=== PATIENT | female | born 1940 | race Caucasian/White ===

== ENCOUNTER 2017-08-10 13:29 | Outpatient (CLI) | payer MEDICARE, BC ==
[~2017-08-10 13:29] MED LIST: Iopamidol 370 76% 100 ML VIAL ONE
--- NOTE | 2017-08-10 15:50 | CT ---
CT OF ABDOMEN PERFORMED WITH AND WITHOUT CONTRAST ENHANCEMENT: Date: 08/10/17 COMPARISON: 10/08/13 and 01/14/16 examinations. This study was done per the pancreatic mass protocol. HISTORY: History of pancreatic pseudocyst. Abdominal pain. Follow-up of pseudocyst. FINDINGS: The lung bases are clear of any focal infiltrative process. Spleen is enlarged. The liver shows no focal abnormalities. Fairly pronounced intra and extrahepatic ductal dilatation. There are chronic pancreatitis changes with a dilated serpiginous appearance to th e pancreatic duct. Both the pancreatic duct and common bile duct abruptly taper in the pancreatic hea d region. Pancreatic head and uncinate process region are full, but this appearance is fairly similar to the previous examination. I cannot define a definite discrete mass. The degree of ductal dilatati on is minimally increased. The gallbladder is not distended. Right and left adrenal glands, and right and left kidneys are normal in appearance. There are small p eriaortic and aortocaval lymph nodes, and some moderate mesenteric adenopathy. There are also extensi ve varices noted with varices extending to a paraesophageal location. The transverse and descending colon are fairly normal in appearance. There is fairly pronounced wall thickening to the right colon to the level of the hepatic flexure. IMPRESSION: 1. Findings are suspicious for a right-sided colitis. 2. Mild splenomegaly with evidence of fairly extensive varices. 3. The intra and extrahepatic biliary ductal dilatation has increased slightly as compared to the pr ior examination. There is also a chronically dilated pancreatic duct. Both the pancreatic duct and co mmon bile duct taper abruptly to end at the level of the pancreatic head and there is fullness in the pancreatic head and uncinate process region. It is difficult to exclude a mass in this area, but the appearance is actually fairly similar to the prior study and may represent a chronic stricture given the fairly minor change as compared to the 2016 study. 4. There is very mild ascites seen with some minimal ascites adjacent to the right colon and adjacen t to the liver and spleen. 5. Moderate mesenteric adenopathy and mildly prominent periaortic and aortocaval nodes, which may al l be reactive. Findings discussed with Dr. Guillen. CODE CR. POS: [facility]
== END 2017-08-10 13:30 | disposition home or self-care (01) ==
LOC: SCSCT 13:29
PROVIDERS: ATTEND Internal Medicine Gastroenterology
DX: R59.0 Localized enlarged lymph nodes (principal); R16.1 Splenomegaly, not elsewhere classified; R18.8 Other ascites; K86.2 Cyst of pancreas; R19.7 Diarrhea, unspecified; E11.9 Type 2 diabetes mellitus without complications; Z63.79 Other stressful life events affecting family and household
CPT/HCPCS: 74178; 82565

== ENCOUNTER 2017-08-14 07:40 | Day surgery (SDC) | payer MEDICARE, BC ==
[2017-08-11 15:32] VITALS: BMI 26.6
[2017-08-14] MEDS ORDERED: Sodium Chloride 0.9% 100 ML ONE (10:02)
[2017-08-14] MEDS ORDERED: cefTRIAXone\\ROCEPHIN 1 GM VIAL ONE (10:02)
[2017-08-14] MEDS ORDERED: Fentanyl 100 MCG/2 ML VIAL ONE (10:12)
[2017-08-14] MEDS ORDERED: Iothalamate Meglumine 60% 50 ML VIAL FS ONE (10:13)
[2017-08-14] MEDS ORDERED: Indomethacin 50 MG SUPP ONE ×2 (10:13→10:33)
[2017-08-14] MEDS ORDERED: Insulin Regular 300 UNITS/3 ML VIAL ONE (10:26)
[2017-08-14] MEDS ORDERED: Glycopyrrolate 0.2 MG/ML 5 ML SYRINGE ONE (12:14)
[2017-08-14] MEDS ORDERED: Lidocaine 1% PF 5 ML VIAL ONE (12:14)
[2017-08-14] MEDS ORDERED: PROPOFOL 200 MG/20 ML VIAL ONE (12:14)
[2017-08-14] MEDS ORDERED: Succinylcholine Chloride 20 MG/ML 10 ml SYRINGE FS ONE (12:14)
[2017-08-14] MEDS ORDERED: Dexamethasone 20 MG/5 ML VIAL ONE (12:14)
[2017-08-14] MEDS ORDERED: Ondansetron HCl/PF 4 MG/2 ML Vial ONE (12:16)
[2017-08-14] MEDS ORDERED: Promethazine HCl 25 MG/ML VIAL ONE (12:16)
--- NOTE | 2017-08-14 12:52 | OP ---
DATE OF SERVICE: 08/14/2017 PROCEDURE: Attempted endoscopic retrograde cholangiopancreatography. SURGEON: Angelo Ramirez M.D. ANESTHESIA: Pain medication given by Anesthesiology Department. PREOPERATIVE DIAGNOSES: 1. Biliary obstruction. 2. Pancreatic pseudocyst. POSTOPERATIVE DIAGNOSES: 1. Very edematous and severely distorted duodenum. 2. Inability to locate ampulla. PROCEDURE IN DETAIL: A written consent was obtained prior to procedure. After adequate sedation, th e side view endoscope was advanced down the stomach through the pylorus into the duodenum, duodenal s weep, the severe distortion of the lumen with very edematous folds. Multiple and prolonged attempt w as made to locate the ampulla, but was unsuccessful. The procedure was then terminated. Patient lillian erated the procedure well. ASSESSMENT: Severe distortion with edematous duodenum, inability to locate ampulla. PLAN: We will refer for the EUS/FNA as there is fullness in the pancreatic head and reattempt at tommie iary drainage if indicated.
[2017-08-14] MEDS ORDERED: Labetalol HCl 100 MG/20 ML VIAL ONE (13:01)
[2017-08-14] MEDS ORDERED: hydrALAZINE 20 MG/ML VIAL ONE (13:26)
== END 2017-08-14 14:35 | disposition home or self-care (01) ==
LOC: SDC 07:40
PROVIDERS: ATTEND Internal Medicine Gastroenterology
PROC: 0FJB8ZZ Inspection of Hepatobiliary Duct, Via Natural or Artificial Opening Endoscopic (ICD-10-PCS; principal; 2017-08-14)
DX: K31.89 Other diseases of stomach and duodenum (principal); E11.9 Type 2 diabetes mellitus without complications; K86.3 Pseudocyst of pancreas; R19.7 Diarrhea, unspecified; Z88.2 Allergy status to sulfonamides; Z88.5 Allergy status to narcotic agent; Z79.4 Long term (current) use of insulin; Z79.82 Long term (current) use of aspirin; Z79.899 Other long term (current) drug therapy; Z63.4 Disappearance and death of family member
CPT/HCPCS: 36416; 96374; 96375; J0360; J0696; J1100; J1815; J2001; J2405; J2550; J2704; J3010; J7050; Q9961

== ENCOUNTER 2017-08-29 09:00 | Outpatient (CLI) | payer MEDICARE, BC ==
--- NOTE | 2017-08-28 20:41 | HP ---
HISTORY OF PRESENT ILLNESS: Apryl Paz is a 77-year-old female who had pancreatitis in 2014, h ad a dilated common bile duct of 1.6 cm, had a pancreatic head mass and body mass. She has had recur rent evidence of pancreatitis. Ultrasound has been negative. She has had multiple CAT scans, last o ne performed on 08/10/2017 revealing chronic pancreatitis changes, serpiginous pancreatic duct, bile duct dilated to approximately 1.6-1.8 cm. The patient has been seen by [facility], wit h an endoscopic ultrasound and FNAs, negative for malignancy. Her CAT scan has been unchanged over t he past several years regarding the chronic pancreatitis. Attempts at cannulation of the pancreatic duct locally and in Orthodox had been unsuccessful for placement of a stent. The patient has progressi ve jaundice. Dr. Alysha Guillen has asked her to see me regarding consideration for choledochoduodeno stomy. On 08/11/2017, bilirubin 4.3, AST 184, ALT 128, alkaline phosphatase 384. CBC unremarkable. BMP normal. Hemoglobin 13. ALLERGIES: SULFA. She reports HYDROMORPHONE given to her made her very sleepy and comatose when she was given too much during one of her hospitalizations. TOBACCO: None. ALCOHOL: None. MEDICATIONS: Metformin 1000 mg b.i.d., pravastatin 40 mg at bedtime, potassium gluconate () mg a day, magnesium oxide b.i.d. as needed, Prinzide 20/12.5 daily, Synthroid 125 mcg daily, Levemir 11 units subcutaneous p.m., Humalog insulin 12 units subcutaneous a.m., vitamin D3, carvedilol 25 mg b. i.d., aspirin 81 mg a day, amitriptyline 25 mg at bedtime. PAST SURGICAL HISTORY: Bilateral tubal ligation, colonoscopy, upper endoscopy, endoscopic ultrasound . PAST MEDICAL HISTORY: Chronic pancreatitis; history of atrial fibrillation, followed Dr. Osborn. Sh kyleigh has had cardiac stress test that have been unremarkable. Echocardiogram was normal, asymptomatic f rom a cardiac standpoint. FAMILY HISTORY: Coronary artery disease, colon cancers, otherwise 10-point review of systems is nonc ontributory. PHYSICAL EXAMINATION: VITAL SIGNS: 145.4 pounds, 62 inches, 158/51, 72, 97.9 degrees. HEAD, EARS, EYES, NOSE, AND THROAT: Unremarkable. LUNGS: Clear to auscultation. CARDIAC: Regular rate and rhythm without murmur or gallop. ABDOMEN: Soft, nontender. EXTREMITIES: Unremarkable. Ankles without edema. Good pedal pulses. NEUROLOGIC: Cranial nerves intact. Pupils equal, round, reactive to light. SKIN: Slightly jaundiced. Sclerae icteric. ASSESSMENT AND PLAN: 1. 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 We would recommend open cholecyste ctomy, choledochoduodenostomy. Risks of infection, bleeding, reoperation explained. 2. Atrial fibrillation. 3. Allergies: SULFA. 4. We would request anesthesia place either a TAP block if they think this would be beneficial for a n upper midline incision versus epidural for perioperative pain control. The patient understands the risks and benefits and questions answered.
[2017-08-29 12:26] LABS: #Basophils 0.1 thou/uL (0.0-0.2); #Eosinphils 0.1 thou/uL (0.0-0.7); #Lymphocytes 1.1 thou/uL (1.20-3.40); #Monocytes 0.4 thou/uL (0.11-0.59); #Neutrophils 4.5 thou/uL (1.40-6.50); %Basophils 1.3 % (0.0-1.0); %Eosinophils 2.2 % (0.0-10.0); %Lymphocytes 16.9 % (21.0-51.0); %Monocytes 6.9 % (0.0-10.0); %Neutrophils 72.7 % (42.0-75.0); Hemoglobin 11.7 g/dL (12.0-16.0); Mean Corpuscular HGB CONC 32.4 g/dL (32.0-36.0); Mean Corpuscular Hemoglobin 33.6 pg (27.0-31.0); Mean Platelet Volume 11.9 fL (7.4-10.4); Platelet Count 112 thou/uL (130-400); RBC Distribution Width 14.7 % (11.5-14.5); Red Blood Cell (RBC) Count 3.47 mill/uL (4.20-5.40); White Blood Cell (WBC) Count 6.3 thou/uL (4.8-10.8)
[2017-08-29 12:53] LABS: ALT (SGPT) 123 U/L (8-55); AST (SGOT) 204 U/L (5-34); Albumin 3.2 g/dL (3.4-4.8); Alkaline Phosphatase 498 U/L (40-150); Anion Gap 14 mmol/L (10-20); BUN (Urea Nitrogen) 14 mg/dL (9.8-20.1); Bilirubin, Total 6.4 mg/dL (0.2-1.2); Calc. Creatinine Clearance 0 mL/min (70-130); Calcium 8.9 mg/dL (7.8-10.44); Carbon Dioxide 25 mmol/L (23-31); Chloride 96 mmol/L (98-107); Estimated GFR-MDRD 54; Globulin 4.4 g/dL (2.4-3.5); Glucose 516 mg/dL (83-110); Potassium 4.4 mmol/L (3.5-5.1); Protein, Total 7.6 g/dL (6.0-8.3); Sodium 131 mmol/L (136-145)
== END 2017-08-29 09:01 | disposition home or self-care (01) ==
LOC: LABBT 09:00
PROVIDERS: ATTEND Specialist
DX: Z01.818 Encounter for other preprocedural examination (principal); R94.5 Abnormal results of liver function studies
CPT/HCPCS: 80053; 85025; 93005; 93010

== ENCOUNTER 2017-08-29 11:00 | Inpatient (IN) | payer MEDICARE, BC ==
[2017-09-08] MEDS ORDERED: Ketorolac Tromethamine 30 MG/ML VIAL ONE ×2 (06:06→06:07)
[2017-09-08] MEDS ORDERED: Levofloxacin 500 mg/D5W 100 ml Premix Bag ONE (06:06)
[2017-09-08] MEDS ORDERED: Fentanyl 100 MCG/2 ML VIAL ONE ×5 (06:43→12:54)
[2017-09-08] MEDS ORDERED: Dexamethasone 4 mg/ml Vial ONE (07:28)
[2017-09-08] MEDS ORDERED: Midazolam HCl 2 mg/2 ml Vial ONE (07:33)
[2017-09-08] MEDS ORDERED: Iothalamate Meglumine 60% 50 ML VIAL FS ONE (10:10)
[2017-09-08] MEDS ORDERED: Promethazine HCl 25 MG/ML VIAL IM PRN ×2 (12:19→13:15)
[2017-09-08] MEDS ORDERED: Promethazine HCl 25 MG/ML VIAL SLOW IVP PRN (12:19)
[2017-09-08] MEDS ORDERED: Ondansetron HCl/PF 4 MG/2 ML Vial IVP PRN ×3 (12:19→13:15)
--- NOTE | 2017-09-08 12:19 | OP ---
DATE OF OPERATION: 09/08/2017 PREOPERATIVE DIAGNOSES: Biliary stricture, intrapancreatic pancreatitis, cholelithiasis, cholecystitis. POSTOPERATIVE DIAGNOSES: Biliary stricture, intrapancreatic pancreatitis, cholelithiasis, cholecystitis. Cirrhosis and multiple dilated veins.( note small stone in gallbladder visualized but spilled on removal) PROCEDURE: Exploratory laparotomy, right subcostal incision. Core liver biopsies for a cirrhotic liver, cholecystectomy, cholangiograms using fluoroscopy choledochoduodenostomy, omental flap, #19 Gold МАРИНА drain. SURGEON: Dr. Johan Preston ANESTHESIA: General anesthesia, tap block. ESTIMATED BLOOD LOSS: 750 to 800 mL. BLOOD TRANSFUSED: None. PROCEDURE: The patient was taken to the operating room where under general anesthesia and tap block, abdomen was prepared with ChloraPrep, draped in routine fashion. Mendieta catheter had been placed. It was removed at the end of the procedure. Right subcostal skin incision made, carried down skin and subcutaneous tissue through the anterior rectus fascia, dividing the rectus muscle, dividing the posterior fascia, peritoneum taken down the falciform ligament between clamps and ligated with 2-0 silk ties. Liver was enlarged and cirrhotic. Liver biopsy was obtained with a core liver biopsy and placed on Tel and submitted. Hemostasis gained with the cautery. Hepatic flexure colon mobilized using LigaSure and large clips and cautery. Once the hepatic flexure was mobilized out of the way, the duodenum was mobilized. Duodenum was mobilized medially. The gallbladder wall was thickened and distended. Dissection carried down over the superior duodenum first portion to the common bile duct. Dissection carried out mobilizing the first portion of the duodenum posterior superior. Attention was then turned to cholecystectomy. Gallbladder taken down using cautery. Gallbladder was inflamed and scar tissue around the bile duct, but as the bile duct had to be dissected free, dissection superiorly of the bile duct identified the bile duct clearly. It was markedly dilated to 2 cm. Gallbladder was transected over the mucosa. Bleeding controlled with clips, 3-0 silk ties, [id number] sutures and clips and LigaSure. At this point, a small choledochotomy was made sharply and elongated with Choi scissors and 12 Yi T-tube placed and cholangiogram was obtained using fluoroscopy revealing normal bile duct anatomy without distal emptying There is a distal bile duct stricture were taken in the bile duct. T-tube was removed and choledochotomy extended superiorly for a total of 2 cm initially sharply as described and with the Choi scissors. The first portion of the duodenum identified and reached tension free. It had been adequately mobilized with a Tati maneuver. Longitudinal duodenotomy was made the first portion of the duodenum just beyond the pylorus for 2 cm. Interrupted sutures of 3-0 PDS were then used to form the choledochoduodenostomy. Once this was completed the area was irrigated. Irrigant evacuated. Tisseel applied. Omental patch mobilized from the transverse colon using LigaSure and cautery and 2-0 silk ties and it was placed around the choledochoduodenostomy held in place with 3-0 silk suture. A 19 gold МАРИНА drain brought out through the right lateral subcostal incision and secured with 3-0 nylon. Good hemostasis noted as irrigant and pneumoperitoneum evacuated, sponge, instrument, and needle counts were correct. Posterior fascia closed with continuous suture of #1 PDS, anterior fascia and lateral muscle layers controlled with interrupted figure-of- eight sutures of #1 PDS. Skin and subcutaneous tissues irrigated, skin approximated with continuous suture of 4-0 Monocryl and DermaGlue applied. The patient tolerated the procedure well. ZOEY
[2017-09-08] MEDS ORDERED: hydrALAZINE 20 MG/ML VIAL SLOW IVP PRN (12:57)
[2017-09-08] MEDS ORDERED: Dextrose 5% in Water 1,000 ML IV PRN (12:57)
[2017-09-08] MEDS ORDERED: HumaLOG 300 UNITS/3 ML VIAL SC PRN (12:57)
[2017-09-08] MEDS ORDERED: Dextrose 50% Abboject 50 ML SYRINGE SLOW IVP PRN (12:57)
[2017-09-08] MEDS ORDERED: Naloxone HCl 0.4 mg/ml Vial IV PRN (13:15)
[2017-09-08] MEDS ORDERED: diphenhydrAMINE 50 MG/ML VIAL IM PRN (13:15)
[2017-09-08] MEDS ORDERED: diphenhydrAMINE 25 MG CAP PO PRN (13:15)
[2017-09-08] MEDS ORDERED: HYDROmorphone 10 mg/100 ml CADD IVPB PRN ×2 (13:15→13:28)
[2017-09-08] MEDS ORDERED: diphenhydrAMINE 50 MG/ML VIAL IVP PRN (13:15)
[2017-09-08] MEDS ORDERED: Zolpidem Tartrate 5 MG TAB PO PRN (13:15)
[2017-09-08] MEDS ORDERED: Communication Order-Pharmacy FS SCH (13:15)
[2017-09-08] MEDS ORDERED: Promethazine HCl 25 MG/ML VIAL ONE (13:16)
[2017-09-08] MEDS ORDERED: Bupivacaine PF 0.5% 30 ML VIAL ONE (13:31)
[2017-09-08] MEDS ORDERED: PHENYLEPHRINE-NS 100 MCG/ML 10 ML SYRINGE ONE (13:54)
[2017-09-08] MEDS ORDERED: PROPOFOL 200 MG/20 ML VIAL ONE (13:54)
[2017-09-08] MEDS ORDERED: Lidocaine 1% PF 5 ML VIAL ONE (13:54)
[2017-09-08] MEDS ORDERED: Ondansetron HCl/PF 4 MG/2 ML Vial ONE (13:54)
[2017-09-08] MEDS ORDERED: Glycopyrrolate 0.2 MG/ML 5 ML SYRINGE ONE (13:54)
--- NOTE | 2017-09-08 14:19 | RAD ---
ONE VIEW ABDOMEN: HISTORY: Status post NG tube placement. FINDINGS: One view abdomen demonstrates a nasogastric tube terminating in the left upper quadrant, likely withi n the stomach. The sidehole is likely at the gastric cardia. There is a region of linear density projecting over the right hemiabdomen which is of uncertain signi ficance. Correlate for possible surgical drain. Surgical clips are noted in the right upper quadra nt. IMPRESSION: Nasogastric tube as above. POS: [facility]
[2017-09-08 15:25] VITALS: BMI 28.7
--- NOTE | 2017-09-08 18:14 | RAD ---
CHOLANGIOGRAM IN SURGERY: 09/08/17 COMPARISON: CT abdomen/pelvis 08/10/17. HISTORY: Status post cholecystectomy with enlarged common bile duct. FINDINGS/IMPRESSION: A single limited intraoperative fluoroscopic view of a cholangiogram taken in surgery was submitted f or interpretation. There is enlargement of the common bile duct and mild central intrahepatic biliary tree. No obvious filling defect is identified. Multiple surgical clips are seen in the right upper q uadrant of the abdomen. POS: [facility]
[2017-09-08] MEDS: Acetaminophen 1,000 MG in Premix Bag 1 BAG IVPB SCH (18:21)
[2017-09-08] MEDS: Ketorolac Tromethamine 30 MG/ML VIAL IVP SCH (18:21)
[2017-09-08] MEDS: Sodium Chloride 0.9% 1,000 ML IV SCH (19:58)
[2017-09-08] MEDS: Enoxaparin Sodium 40 MG/0.4 ML SYRINGE SC SCH (21:38)
[2017-09-08] MEDS: Carvedilol 25 MG TAB PO SCH (21:38)
[2017-09-08] MEDS: Amitriptyline HCl 25 MG TAB PO SCH (21:38)
[2017-09-08] MEDS: Famotidine/PF 20 mg/2ml Vial SLOW IVP SCH (21:39)
[2017-09-09] MEDS: Ketorolac Tromethamine 30 MG/ML VIAL IVP SCH ×5 (00:57→23:28)
[2017-09-09] MEDS: Acetaminophen 1,000 MG in Premix Bag 1 BAG IVPB SCH ×3 (00:57→11:48)
[2017-09-09] MEDS: Insulin Regular 300 UNITS/3 ML VIAL SC PRN ×2 (01:08→06:29)
[2017-09-09] MEDS: Sodium Chloride 0.9% 1,000 ML IV SCH ×3 (02:22→14:09)
[2017-09-09 05:37] LABS: INR-International Normal Ratio 1.3; PTT 38.7 SEC (22.9-36.1); Prothrombin Time 16.1 SEC (12.0-14.7)
[2017-09-09 05:50] LABS: ALT (SGPT) 200 U/L (8-55); AST (SGOT) 342 U/L (5-34); Albumin 2.5 g/dL (3.4-4.8); Alkaline Phosphatase 321 U/L (40-150); Anion Gap 12 mmol/L (10-20); BUN (Urea Nitrogen) 24 mg/dL (9.8-20.1); Bilirubin, Total 3.3 mg/dL (0.2-1.2); Calc. Creatinine Clearance 55 mL/min (70-130); Calcium 8.1 mg/dL (7.8-10.44); Carbon Dioxide 25 mmol/L (23-31); Chloride 100 mmol/L (98-107); Estimated GFR-MDRD 57; Globulin 3.7 g/dL (2.4-3.5); Glucose 336 mg/dL (83-110); Potassium 4.9 mmol/L (3.5-5.1); Protein, Total 6.2 g/dL (6.0-8.3); Sodium 132 mmol/L (136-145)
[2017-09-09 06:03] LABS: HBSAg Index 0.24 S/CO (0-0.99); Hep A IgM AB Non-Reactive (NonReactive); Hep A IgM S/CO 0.26 S/CO (0-0.79); Hep B Surf Ag Non-Reactive S/CO (NonReactive); Hep C IgG Ab Non-Reactive (NonReactive); Hep C Index 0.23 S/CO (0-0.79); Hepatitis B Core IGM Abs Non-Reactive (NonReactive)
[2017-09-09 06:47] LABS: #Lymphocytes 1.8 thou/uL (1.20-3.40); #Monocytes 1.3 thou/uL (0.11-0.59); #Neutrophils 7.2 thou/uL (1.40-6.50); %Basophils 0.3 % (0.0-1.0); %Eosinophils 0.1 % (0.0-10.0); %Monocytes 12.9 % (0.0-10.0); %Neutrophils 69.7 % (42.0-75.0); Band 13 % (5-11); Hemoglobin 10.1 g/dL (12.0-16.0); Large Platelets SLIGHT; Lymphocytes 17 % (21-51); MDiff Complete? YES; Macrocytosis SLIGHT = 6-15 cells (100X) (0-5/hpf); Mean Corpuscular HGB CONC 32.9 g/dL (32.0-36.0); Mean Corpuscular Hemoglobin 34.7 pg (27.0-31.0); Mean Platelet Volume 12.2 fL (7.4-10.4); Monocytes 6 % (0-10); Neutrophil 64 % (42-75); PLT Morphology Comment Appears Decreased; Platelet Count 109 thou/uL (130-400); White Blood Cell (WBC) Count 10.3 thou/uL (4.8-10.8)
[2017-09-09] MEDS ORDERED: HYDROmorphone 10 mg/100 ml CADD IVPB PRN (09:11)
[2017-09-09] MEDS: Carvedilol 25 MG TAB PO SCH ×2 (10:35→20:40)
[2017-09-09] MEDS: Famotidine/PF 20 mg/2ml Vial SLOW IVP SCH ×2 (10:36→21:22)
--- NOTE | 2017-09-09 13:21 | PRG ---
DATE OF SERVICE: 09/09/2017 SUBJECTIVE: Mrs. Paz is doing well today. OBJECTIVE: VITAL SIGNS: 97.5 degrees, 64, 16, 103/62. МАРИНА drain is mostly serosanguineous drainage, very light colored, 1265/24 hours. She has been voiding spontaneously. Did not have a Mendieta postoperative. NG tube is removed at bedside. LUNGS: Clear to auscultation. CARDIAC: Regular rate and rhythm without murmur, rub, or gallop. ABDOMEN: Soft, nontender. Surgical wound looks good. EXTREMITIES: Unremarkable. LABORATORY DATA: White count 10, hemoglobin 10.1. This morning, her bilirubin is down from 6 preope ratively to 3.3. Sodium 132, potassium 4.9, BUN 24. ASSESSMENT AND PLAN: Overall, the patient is doing well, status post choledochoduodenostomy, cholecy stectomy, drain placement, and omental flap liver biopsy. Liver biopsy and pathology pending. Serol ogy negative for hepatitis. She does not have a history of alcohol consumption. Her surgically-appr eciated cirrhosis is probably secondary to past obesity and chronic biliary obstruction. She did hav e a small gallstone found at the time of cholecystectomy. At this point, we will remove her NG tube. Continue ice chips today and medication with a sip of water. Plan to begin liquids tomorrow.
[2017-09-09] MEDS: Acetaminophen 500 MG TAB PO SCH ×2 (17:52→23:28)
[2017-09-09] MEDS: Amitriptyline HCl 25 MG TAB PO SCH (20:39)
[2017-09-09] MEDS: Enoxaparin Sodium 40 MG/0.4 ML SYRINGE SC SCH (20:39)
[2017-09-09] MEDS: Famotidine 20 MG TAB PO SCH (20:39)
[2017-09-10] MEDS: Sodium Chloride 0.9% 1,000 ML IV SCH ×2 (04:43→11:46)
[2017-09-10 05:52] LABS: #Basophils 0.1 thou/uL (0.0-0.2); #Eosinphils 0.2 thou/uL (0.0-0.7); #Lymphocytes 1.5 thou/uL (1.20-3.40); #Monocytes 0.7 thou/uL (0.11-0.59); #Neutrophils 4.9 thou/uL (1.40-6.50); %Basophils 0.9 % (0.0-1.0); %Eosinophils 2.9 % (0.0-10.0); %Lymphocytes 20.4 % (21.0-51.0); %Monocytes 8.9 % (0.0-10.0); %Neutrophils 66.9 % (42.0-75.0); Mean Corpuscular HGB CONC 32.5 g/dL (32.0-36.0); Mean Corpuscular Hemoglobin 34.2 pg (27.0-31.0); Mean Platelet Volume 11.9 fL (7.4-10.4); Platelet Count 96 thou/uL (130-400); RBC Distribution Width 13.9 % (11.5-14.5); Red Blood Cell (RBC) Count 2.91 mill/uL (4.20-5.40); White Blood Cell (WBC) Count 7.3 thou/uL (4.8-10.8)
[2017-09-10] MEDS: Ketorolac Tromethamine 30 MG/ML VIAL IVP SCH ×2 (05:54→11:44)
[2017-09-10] MEDS: Acetaminophen 500 MG TAB PO SCH ×4 (05:55→23:50)
[2017-09-10] MEDS: Insulin Regular 300 UNITS/3 ML VIAL SC PRN ×3 (06:03→18:21)
[2017-09-10 06:07] LABS: ALT (SGPT) 179 U/L (8-55); AST (SGOT) 262 U/L (5-34); Albumin 2.4 g/dL (3.4-4.8); Alkaline Phosphatase 280 U/L (40-150); Anion Gap 9 mmol/L (10-20); BUN (Urea Nitrogen) 27 mg/dL (9.8-20.1); Bilirubin, Total 2.8 mg/dL (0.2-1.2); Calc. Creatinine Clearance 65 mL/min (70-130); Calcium 8.2 mg/dL (7.8-10.44); Carbon Dioxide 25 mmol/L (23-31); Chloride 104 mmol/L (98-107); Estimated GFR-MDRD 69; Globulin 3.6 g/dL (2.4-3.5); Glucose 212 mg/dL (83-110); Potassium 4.2 mmol/L (3.5-5.1); Sodium 134 mmol/L (136-145)
[2017-09-10] MEDS: Famotidine/PF 20 mg/2ml Vial SLOW IVP SCH (08:21)
[2017-09-10] MEDS: Famotidine 20 MG TAB PO SCH ×2 (09:06→21:05)
[2017-09-10] MEDS: Carvedilol 25 MG TAB PO SCH ×2 (09:06→21:05)
[2017-09-10] MEDS ORDERED: Ibuprofen 600 MG TAB PO PRN (15:12)
[2017-09-10] MEDS ORDERED: Sodium Chloride 0.9% 1,000 ML IV SCH (15:16)
--- NOTE | 2017-09-10 15:47 | PRG ---
DATE OF SERVICE: 09/10/2017 SUBJECTIVE: Ms. Paz is doing well today. OBJECTIVE: VITAL SIGNS: 97.8 degrees, 63, 115/71. Today, her white count is 7, hemoglobin stable at 10. Basic metabolic profile normal. Bilirubin down to 2.8 as well as her other liver function tests. МАРИНА rivaslinda n is putting out 920 in the last 24 hours. It is more serous. The patient is without nausea or vomi ting. She is tolerating her liquids. LUNGS: Clear to auscultation. CARDIAC: Regular rate and rhythm without murmur or gallop. ABDOMEN: Soft, well-healed right subcostal incision. МАРИНА drain yellow serous. ASSESSMENT AND PLAN: Status post choledochoduodenostomy for permanent biliary stricture with biliary obstruction. The patient is doing well. Advance her to a full liquid diet this evening, regular di et tomorrow. Saline lock her. Anticipate she will be able to go home in the next day or two. New d iagnosis of cirrhosis, liver biopsies pending. Viral serology negative. Suspect cirrhosis secondary to chronic biliary obstruction and history of morbid obesity.
[2017-09-10] MEDS: Amitriptyline HCl 25 MG TAB PO SCH (21:05)
[2017-09-10] MEDS: Enoxaparin Sodium 40 MG/0.4 ML SYRINGE SC SCH (21:05)
[2017-09-11] MEDS ORDERED: HYDROcodone/Acetaminophen 5/325 mg Tablet PO PRN ×2 (00:22→06:00)
[2017-09-11] MEDS: Acetaminophen 500 MG TAB PO SCH ×3 (05:56→18:11)
[2017-09-11] MEDS ORDERED: traMADol HCl 50 MG TAB PO PRN ×2 (06:00)
[2017-09-11] MEDS: Insulin Regular 300 UNITS/3 ML VIAL SC PRN ×4 (06:50→20:50)
[2017-09-11] MEDS: Famotidine 20 MG TAB PO SCH ×2 (09:22→20:46)
[2017-09-11] MEDS: Polyethylene Glycol 3350 17 GM Packet PO SCH (09:22)
[2017-09-11] MEDS: Carvedilol 25 MG TAB PO SCH ×2 (09:22→20:49)
--- NOTE | 2017-09-11 12:30 | PRG ---
DATE OF SERVICE: 09/11/2017 SUBJECTIVE: Apryl Florentino is doing well today. She is tolerating her diet. She has had a bowel m ovement. She is not having any nausea or vomiting. 97.6 degrees, 64, 16, 116/71. A МАРИНА drain is janett ining copious amounts of serous fluid up to 2370 a day. She does have cirrhosis accounting for this. There is no indication for biliary drainage. OBJECTIVE: LUNGS: Clear to auscultation. CARDIAC: Regular rate and rhythm without murmur, rub, or gallop. ABDOMEN: Soft and nontender. LABORATORY: White count 7, hemoglobin 10, sodium 134, potassium 4.2 yesterday, bilirubin 2.8 yesterd ay. ASSESSMENT AND PLAN: 1. A new diagnosis of cirrhosis. Pathology pending from core biopsies. 2. Benign biliary stricture, pancreatic head from chronic pancreatitis, status post choledochoduoden ostomy. Her liver function tests are improving. We will check her liver function tests tomorrow. E xpect discharge home tomorrow.
[2017-09-11] MEDS: Pancrelipase DR 12000 1 CAP PO SCH ×2 (14:08→18:11)
[2017-09-11] MEDS: metFORMIN 500 MG TAB PO SCH (18:11)
[2017-09-11] MEDS: Amitriptyline HCl 25 MG TAB PO SCH (20:45)
[2017-09-11] MEDS: Insulin Glargine 11 UNITS in Pre-Filled Syringe 1 EACH SC SCH (20:46)
[2017-09-11] MEDS: Magnesium Oxide 400 MG TAB PO SCH (20:46)
[2017-09-11] MEDS: Enoxaparin Sodium 40 MG/0.4 ML SYRINGE SC SCH (20:46)
[2017-09-11] MEDS: Atorvastatin Calcium 10 MG TAB PO SCH (20:46)
[2017-09-11] MEDS ORDERED: LEVEMIR SC SCH (21:00)
[2017-09-12] MEDS: Levothyroxine Sodium 125 MCG TAB PO SCH (05:03)
[2017-09-12 05:52] LABS: ALT (SGPT) 135 U/L (8-55); AST (SGOT) 129 U/L (5-34); Albumin 2.4 g/dL (3.4-4.8); Alkaline Phosphatase 282 U/L (40-150); Anion Gap 10 mmol/L (10-20); BUN (Urea Nitrogen) 21 mg/dL (9.8-20.1); Bilirubin, Direct 1.7 mg/dL (0.1-0.3); Bilirubin, Total 2.4 mg/dL (0.2-1.2); Calc. Creatinine Clearance 74 mL/min (70-130); Calcium 8.2 mg/dL (7.8-10.44); Carbon Dioxide 24 mmol/L (23-31); Chloride 104 mmol/L (98-107); Estimated GFR-MDRD 81; Glucose 219 mg/dL (83-110); Potassium 4.3 mmol/L (3.5-5.1); Protein, Total 6.2 g/dL (6.0-8.3); Sodium 134 mmol/L (136-145)
[2017-09-12] MEDS: Insulin Regular 300 UNITS/3 ML VIAL SC PRN ×4 (06:33→21:39)
[2017-09-12] MEDS: Potassium Chloride 8 MEQ TAB PO SCH (07:27)
[2017-09-12] MEDS: Lisinopril/Hydrochlorothiazide 20 mg/12.5 mg Tablet PO SCH (07:27)
[2017-09-12] MEDS: Pancrelipase DR 12000 1 CAP PO SCH ×3 (07:27→16:53)
[2017-09-12] MEDS: Magnesium Oxide 400 MG TAB PO SCH ×2 (07:28→20:07)
[2017-09-12] MEDS: metFORMIN 500 MG TAB PO SCH ×2 (07:28→16:53)
[2017-09-12] MEDS: Famotidine 20 MG TAB PO SCH ×2 (07:28→20:07)
[2017-09-12] MEDS: Carvedilol 25 MG TAB PO SCH ×2 (07:28→20:07)
[2017-09-12] MEDS: Polyethylene Glycol 3350 17 GM Packet PO SCH (07:29)
[2017-09-12] MEDS: Enoxaparin Sodium 40 MG/0.4 ML SYRINGE SC SCH (20:07)
[2017-09-12] MEDS: Atorvastatin Calcium 10 MG TAB PO SCH (20:07)
[2017-09-12] MEDS: Amitriptyline HCl 25 MG TAB PO SCH (20:07)
[2017-09-12] MEDS: Insulin Glargine 11 UNITS in Pre-Filled Syringe 1 EACH SC SCH (21:38)
--- NOTE | 2017-09-13 04:36 | PRG ---
DATE OF SERVICE: 09/12/2017 SUBJECTIVE: Ms. Paz is doing well after choledochoduodenoscopy. PHYSICAL EXAMINATION: VITAL SIGNS: 98.8 degrees, 71, and 103/51. LUNGS: Clear to auscultation. CARDIAC: Regular rate and rhythm without murmur or gallop. ABDOMEN: Soft, nontender. LABORATORY DATA: White count 7, hemoglobin 10. Basic metabolic profile was normal. Bilirubin is do wn to 2.4 from 6. Her МАРИНА drain was removed yesterday and has minimal leakage. Plan is to discharge her home tomorrow w ith follow up in my office in 2-3 weeks. Her surgical wound looks good. Her pathology from the live r biopsy is pending. She was found to have cirrhosis.
[2017-09-13] MEDS: Levothyroxine Sodium 125 MCG TAB PO SCH (05:59)
[2017-09-13] MEDS ORDERED: Acetaminophen 500 MG TAB PO PRN (07:29)
--- NOTE | 2017-09-13 07:35 | PRG ---
DATE OF SERVICE: 09/13/2017 Apryl Paz is doing well today. PHYSICAL EXAMINATION: VITAL SIGNS: Temperature 97.2, 73, 109/66. GENERAL: She is tolerating her diet. LUNGS: Clear to auscultation. CARDIAC: Regular rate and rhythm without murmur or gallop. ABDOMEN: Soft, nontender. LABORATORY: There are no labs. ASSESSMENT AND PLAN: Doing well status post choledochoduodenostomy. Pathology is pending. At this point, she is being discharged home with follow up in my office in 2-3 weeks. Diet and activity as t olerated. Resume her home medications.
[2017-09-13 07:40] VITALS: BP 111/70; TEMP 97.6
--- NOTE | 2017-09-13 07:54 | DIS ---
DISCHARGE DIAGNOSES: 1. Benign biliary stricture secondary to pancreatitis with jaundice, chronic biliary obstruction. 2. Cirrhosis with portal hypertension changes. Hepatitis studies negative. Cirrhosis is probably d ue to past history of obesity and chronic biliary obstruction, liver biopsies pending. Admission bilirubin 6, discharge bilirubin 2.4, transaminases on admission 204, discharge 129 AST, AL T admission 200, discharge 135. Alkaline phosphatase preadmission 498, discharge 282. Discharge hem oglobin 10. DISCHARGE MEDICATIONS: Ultram p.r.n. pain, Motrin p.r.n. pain, Tylenol p.r.n. pain. Resume home med ications. Lipase protease amylase and potassium gluconate and omeprazole, cholecalciferol, insulin, pravastatin, metformin, magnesium oxide, lisinopril/hydrochlorothiazide 20/12.5, levothyroxine 125 mc g a day, FlexPen Levemir, carvedilol 25 mg b.i.d., aspirin 81 mg daily, amitriptyline 25 mg at bedtim e. FOLLOWUP: Follow up in my office in 2-3 weeks. HISTORY: A 77-year-old female with history of pancreatitis, pancreatic pseudocyst that resolved. Se rial CAT scans revealed a persistent pancreatic head fullness and 2 endoscopic ultrasounds revealed p ortal hypertension changes consistent with cirrhosis and chronic biliary obstruction with benign FNAs felt to be a benign biliary obstruction. Dr. Alysha Guillen referred to me for a choledochoduodenost conor, the patient underwent open cholecystectomy and choledochoduodenostomy. Postoperatively, her janett in was removed. She convalesced, tolerated diet, and discharged home on the above medical regimen. Follow up in my office in 2-3 weeks. No lifting over 25 pounds for 6 weeks.
[2017-09-13] MEDS: metFORMIN 500 MG TAB PO SCH (08:16)
[2017-09-13] MEDS: Carvedilol 25 MG TAB PO SCH (08:17)
[2017-09-13] MEDS: Lisinopril/Hydrochlorothiazide 20 mg/12.5 mg Tablet PO SCH (08:17)
[2017-09-13] MEDS: Magnesium Oxide 400 MG TAB PO SCH (08:18)
[2017-09-13] MEDS: Potassium Chloride 8 MEQ TAB PO SCH (08:18)
[2017-09-13] MEDS: Famotidine 20 MG TAB PO SCH (08:18)
[2017-09-13] MEDS: Pancrelipase DR 12000 1 CAP PO SCH (08:18)
[2017-09-13] MEDS: Polyethylene Glycol 3350 17 GM Packet PO SCH ×2 (08:18→08:21)
== END 2017-09-13 11:42 | disposition home or self-care (01) | DRG 409 ==
LOC: SURG A 09-08 05:53 → SJJU 09-08 14:36
PROVIDERS: ADMIT Specialist; ATTEND Specialist
PROC: 0FT40ZZ Resection of Gallbladder, Open Approach (ICD-10-PCS; principal; 2017-09-08)
PROC: 0FB00ZX Excision of Liver, Open Approach, Diagnostic (ICD-10-PCS; 2017-09-08)
PROC: 0F190Z3 Bypass Common Bile Duct to Duodenum, Open Approach (ICD-10-PCS; 2017-09-08)
PROC: 0DU907Z Supplement Duodenum with Autologous Tissue Substitute, Open Approach (ICD-10-PCS; 2017-09-08)
PROC: [UNRECOGNIZED PROCEDURE] (2017-09-08)
PROC: BF10YZZ Fluoroscopy of Bile Ducts using Other Contrast (ICD-10-PCS; 2017-09-08)
DX: K80.11 Calculus of gallbladder with chronic cholecystitis with obstruction (principal); K86.1 Other chronic pancreatitis; K76.6 Portal hypertension; K74.60 Unspecified cirrhosis of liver; Z88.5 Allergy status to narcotic agent; Z88.2 Allergy status to sulfonamides
CPT/HCPCS: 36415; 36416; 47532; 74018; 80048; 80053; 80074; 80076; 85025; 85610; 85730; 86850; 86900; 86901; 88304; 88307; 88313; J0131; J1100; J1650; J1885; J1956; J2001; J2250; J2405; J2550; J2704; J3010; Q9961; S0020; S0028

== ENCOUNTER → 2017-10-13 | Day surgery (SDC) | payer MEDICARE, BC ==
[~2017-10-13] MED LIST changes: -Iopamidol 370 76% 100 ML VIAL ONE; +Lidocaine 1% PF 5 ML VIAL ONE; +Prevnar 13-Val Conj/PF 0.5 ML SYRINGE IM ONE
--- NOTE | 2017-10-13 14:45 | ULT ---
ULTRASOUND GUIDED PARACENTESIS: Indication: Ascites. Technique: Informed consent was obtained. Pre procedure ultrasound demonstrated prominent amount of ascites. Sit e overlying right upper lower quadrant was marked. Site was prepped and draped in the usual sterile f ashion. Buffered 1% Lidocaine was administered to overlying subcutaneous tissues. Under ultrasound gu idance, a 5 Welsh Yueh catheter was guided into the large collection in the right lower quadrant of the abdomen. 4300 cc of peritoneal fluid was removed. Patient tolerated the procedure without difficu lty. IMPRESSION: Successful ultrasound guided paracentesis with removal of 4300 cc. Sample of fluid was sent to the pa thology department for further analysis per Dr. Preston's request. POS: [facility]
== END ==
LOC: ULT 12:59
PROVIDERS: ATTEND Specialist
PROC: 0W9G3ZZ Drainage of Peritoneal Cavity, Percutaneous Approach (ICD-10-PCS; principal; 2017-10-13)
DX: R18.8 Other ascites (principal); K74.60 Unspecified cirrhosis of liver; Z79.4 Long term (current) use of insulin; Z79.82 Long term (current) use of aspirin; Z79.899 Other long term (current) drug therapy; Z88.2 Allergy status to sulfonamides; Z88.5 Allergy status to narcotic agent
CPT/HCPCS: 49083; 82150; 82247; 87070; 87205; J2001

== ENCOUNTER 2017-10-27 06:41 | Day surgery (SDC) | payer MEDICARE, BC ==
[2017-10-26 13:20] VITALS: BMI 29.2
[~2017-10-27 06:41] MED LIST changes: -Lidocaine 1% PF 5 ML VIAL ONE
[2017-10-27 07:43] VITALS: BP 119/59; TEMP 97.4
[2017-10-27] MEDS ORDERED: Lidocaine 1% PF 5 ML VIAL ONE (07:59)
[2017-10-27] MEDS ORDERED: Sodium Bicarbonate 2.5 MEQ/5 ML VIAL ONE (07:59)
--- NOTE | 2017-10-30 09:17 | ULT ---
ULTRASOUND-GUIDED PARACENTESIS: CLINICAL INDICATION: Ascites. PROCEDURE: After informed consent had been obtained, the patient was escorted to the ultrasound suite and placed in a supine position. The abdomen was imaged which revealed adequate ascites for the procedure. Th e skin of the abdomen was then prepped and draped in the standard sterile fashion and the skin surfac e, subcutaneous tissues, and peritoneal lining of the abdomen were anesthetized with 1% Lidocaine buf fered with sodium bicarbonate. A right lower quadrant approach was selected. A small skin incision was made at the site of topical anesthesia. Subsequently, under real-time ultrasound guidance a JLGOV catheter was advanced through the incision site into the peritoneal cavity. Ascites was present at the catheter hub. The catheter was then secured to vacuum sealed sterile containers, via sterile tub ing and subsequently 4.6 L of clear-yellow ascites was drained from the patient. The catheter was th en removed from the patient. The patient tolerated the procedure well without evidence of complicati on. Postprocedure imaging revealed no complication and interval reduction in volume of ascites. The patient was monitored by a radiology nurse and was stable in condition. IMPRESSION: Technically successful ultrasound-guided paracentesis, as above.
== END 2017-10-27 09:09 | disposition critical access hospital (66) ==
LOC: ULT 06:41
PROVIDERS: ATTEND Specialist
PROC: 0W9G3ZZ Drainage of Peritoneal Cavity, Percutaneous Approach (ICD-10-PCS; principal; 2017-10-27)
DX: R18.8 Other ascites (principal); Z88.2 Allergy status to sulfonamides; Z88.5 Allergy status to narcotic agent
CPT/HCPCS: 49083; J2001

== ENCOUNTER 2018-08-03 08:46 | Outpatient (CLI) | payer MEDICARE, BC ==
--- NOTE | 2018-08-03 09:52 | ULT ---
Ultrasound hepatic Doppler duplex: 08/03/2018 HISTORY: 77-year-old female with pancreatitis and nonalcoholic cirrhosis. TECHNIQUE: Grayscale of liver and spleen. Color flow and spectral analysis of major blood vessels associated with the liver. FINDINGS: There is normal, appropriate pulse Doppler waveform, and hepatopetal flow, in the right and left port al veins. However, there is no flow in the main portal vein. This conclusion is made after review of the CT of 10/21/2017 which was performed in the venous phase, unlike the CT of 04/26/2018, which was obtained during the arterial phase. Hepatofugal flow with appropriate pulse Doppler waveforms, are demonstrated in the hepatic veins and inferior vena cava. The liver has heterogeneous echogenicity. This is nonspecific, but could be due to heterogeneous fatt y liver or perfusion abnormalities. The pneumobilia demonstrated on the recent CT is demonstrated on this ultrasound by numerous short, linear hyperechoic foci in the liver. Common duct caliber is 3 mm. Gallbladder is surgically absent. There is a small amount of free fluid around the liver. Spleen is 13 x 13 x 7.5 cm, with lobular hilum no hydronephrosis of right kidney. Pancreas is complet jared obscured by shadowing from bowel gas. IMPRESSION: 1. 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 2. Heterogeneous echogenicity of liver: Differential diagnosis is heterogeneous hepatic steatosis bennie coreen perfusion abnormality. 3. Pneumobilia. 4. Splenomegaly.
== END 2018-08-03 08:47 | disposition home or self-care (01) ==
LOC: BICULT 08:46
PROVIDERS: ATTEND Physician Assistant Medical
DX: K52.9 Noninfective gastroenteritis and colitis, unspecified (principal); K86.1 Other chronic pancreatitis; D64.9 Anemia, unspecified; K74.60 Unspecified cirrhosis of liver; R16.1 Splenomegaly, not elsewhere classified
CPT/HCPCS: 76705

== ENCOUNTER 2018-10-15 12:55 | Emergency (ER) | payer MEDICARE, BC ==
--- NOTE | 2018-10-15 13:41 | CT ---
CT Cervical Spine WO Con History: Mechanical fall. Hit face on floor. Comparison: None. Findings: The odontoid process is intact. Occipital condyles are intact. There is narrowing of the at lantodental interval. No acute traumatic facet joint widening. Multilevel degenerative disc space height loss and facet art hropathy. The mastoids are well aerated. Lung apices are clear. Impression: No acute fracture or malalignment of the cervical spine.
--- NOTE | 2018-10-15 13:45 | CT ---
CT Facial Bones WO Con History: Fall on face. Code Green Comparison: None. Findings: Normal location of the temporomandibular joints. The mandible is intact. Numerous teeth ero sions. Numerous missing teeth. Thyroid cartilage is intact as well as the hyoid bone. Nasal bones are intact. The medial orbital cross, lateral orbital cross, orbital roofs, orbital floor s are intact. The zygoma and zygomatic arches are intact. Osseous nasal septum is intact with a rightward nasal spur. Cervical soft tissues appear normal. Globes are intact. Small right forehead soft tissue contusion wi th intact underlying calvarium. Impression: Right forehead superficial soft tissue contusion without acute fracture of the face.
--- NOTE | 2018-10-15 14:55 | CT ---
CT BRAIN WITHOUT CONTRAST: HISTORY: Fall. No loss of consciousness. Headache. FINDINGS: No evidence of infarct, hemorrhage, midline shift, or abnormal extraaxial fluid collection is seen. The ventricular size is appropriate, and the basilar cisterns are patent. The bony calvarium is inta ct. The visualized paranasal sinuses and mastoid air cells are well aerated. IMPRESSION: No CT evidence of acute intracranial process. POS: [facility]
== END 2018-10-15 15:52 | disposition home or self-care (01) ==
LOC: ERS 12:55
DX: S00.83XA Contusion of other part of head, initial encounter (principal); S00.33XA Contusion of nose, initial encounter; S40.021A Contusion of right upper arm, initial encounter; E11.9 Type 2 diabetes mellitus without complications; E03.9 Hypothyroidism, unspecified; I10 Essential (primary) hypertension; I48.91 Unspecified atrial fibrillation; F41.9 Anxiety disorder, unspecified; Z79.899 Other long term (current) drug therapy; Z79.4 Long term (current) use of insulin; Z79.01 Long term (current) use of anticoagulants; W19.XXXA Unspecified fall, initial encounter
CPT/HCPCS: 70450; 70486; 72125

== ENCOUNTER 2020-05-01 10:48 | Day surgery (SDC) | payer MEDICARE, BC ==
[2020-04-30 12:30] VITALS: BMI 25.0
[2020-05-01 11:16] LABS: #Basophils 0.1 thou/uL (0.0-0.2); #Eosinphils 0.2 thou/uL (0.0-0.7); #Lymphocytes 0.8 thou/uL (1.20-3.40); #Monocytes 0.5 thou/uL (0.11-0.59); #Neutrophils 3.6 thou/uL (1.40-6.50); %Basophils 1.5 % (0.0-1.0); %Eosinophils 4.3 % (0.0-10.0); %Lymphocytes 15.9 % (21.0-51.0); %Monocytes 10.1 % (0.0-10.0); %Neutrophils 68.2 % (42.0-75.0); Hemoglobin 10.7 g/dL (12.0-16.0); INR-International Normal Ratio 1.1; Mean Corpuscular HGB CONC 32.3 g/dL (32.0-36.0); Mean Corpuscular Hemoglobin 30.1 pg (27.0-31.0); Mean Corpuscular Volume 93.2 fL (78.0-98.0); Mean Platelet Volume 10.2 fL (7.4-10.4); PTT 26.6 sec (22.9-36.1); Platelet Count 121 thou/uL (130-400); Prothrombin Time 14.1 sec (12.0-14.7); RBC Distribution Width 15.5 % (11.5-14.5); Red Blood Cell (RBC) Count 3.55 mill/uL (4.20-5.40); White Blood Cell (WBC) Count 5.3 thou/uL (4.8-10.8)
[2020-05-01 11:55] VITALS: BP 125/64; TEMP 98.2
--- NOTE | 2020-05-01 12:44 | ULT ---
Ultrasound abdomen limited: 05/01/2020 HISTORY: 79-year-old female with ascites TECHNIQUE: Four-quadrant survey of the abdominal cavity. 4 images submitted. FINDINGS: There is a small amount of free fluid in the left lower quadrant. No free fluid identified elsewhere. IMPRESSION: Minimal ascites.
== END 2020-05-01 11:40 | disposition home or self-care (01) ==
LOC: ULT 10:48
PROVIDERS: ATTEND Nurse Practitioner Adult Health
DX: K75.81 Nonalcoholic steatohepatitis (NASH) (principal); K74.69 Other cirrhosis of liver; R18.8 Other ascites; E11.9 Type 2 diabetes mellitus without complications; I10 Essential (primary) hypertension; F41.9 Anxiety disorder, unspecified; F32.9 Major depressive disorder, single episode, unspecified; I48.91 Unspecified atrial fibrillation; E78.5 Hyperlipidemia, unspecified; E03.9 Hypothyroidism, unspecified; Z79.4 Long term (current) use of insulin; Z79.899 Other long term (current) drug therapy; Z88.2 Allergy status to sulfonamides; Z88.5 Allergy status to narcotic agent
CPT/HCPCS: 76705; 85025; 85610; 85730

== ENCOUNTER 2020-07-02 23:04 | Inpatient (IN) | payer MEDICARE, BC ==
[2020-07-02] MEDS ORDERED: hydrALAZINE 20 MG/ML VIAL SLOW IVP PRN (23:43)
[2020-07-02] MEDS ORDERED: Dextrose 5% in Water 1,000 ML IV PRN (23:43)
[2020-07-02] MEDS ORDERED: Ondansetron PF 4 MG/2 ML Vial IVP PRN (23:43)
[2020-07-02] MEDS ORDERED: Dextrose 50% Abboject 50 ML SYRINGE SLOW IVP PRN (23:43)
[2020-07-02] MEDS ORDERED: Ondansetron ODT 4 MG TAB PO PRN (23:43)
[2020-07-02] MEDS ORDERED: HumaLOG 300 UNITS/3 ML VIAL SC PRN (23:43)
[2020-07-02] MEDS ORDERED: Sodium Chloride 0.9% 1,000 ML IV SCH (23:45)
[2020-07-02] MEDS ORDERED: traMADol HCl 50 MG TAB PO PRN (23:47)
[2020-07-03] MEDS ORDERED: Dextrose 50% Abboject 50 ML SYRINGE SLOW IVP PRN ×2 (00:11→00:56)
[2020-07-03] MEDS ORDERED: Dextrose 5% in Water 1,000 ML IV PRN ×2 (00:11→00:56)
[2020-07-03] MEDS ORDERED: Insulin Regular 300 UNITS/3 ML VIAL SC PRN (00:56)
[2020-07-03] MEDS ORDERED: Magnesium 2 GM/50 ML 2 GM in Premix Bag 1 BAG IVPB SCH (01:15)
[2020-07-03] MEDS ORDERED: Lantus 1000 UNITS/10 ML VIAL SC SCH ×2 (01:15→21:00)
[2020-07-03] MEDS: Sodium Chloride 0.9% 1,000 ML IV SCH ×3 (01:35→23:23)
[2020-07-03] MEDS: Acetaminophen 325 MG TAB PO SCH ×5 (02:12→23:23)
[2020-07-03] MEDS: traMADol HCl 50 MG TAB PO SCH ×5 (02:12→23:24)
[2020-07-03 02:20] VITALS: BMI 21.4
[2020-07-03 04:30] LABS: Bacteria/HPF 2+ HPF (None Seen); Bilirubin Negative (Negative); Blood, Urine 1+ (Negative); Clarity Turbid (Clear); Glucose, Urine (Dipstick) Greater than 1000 mg/dL (Negative); Ketone, Urine Trace mg/dL (Negative); Leukocyte 500 Leu/uL (Negative); Nitrite 1+ (Negative); Protein, Urine (Dipstick) 20 mg/dL (Neg-Trace); Specific Gravity, Urine 1.032 (1.002-1.036); Squamous Epithelial None Seen HPF (0-3); Urobilinogen Normal mg/dL (Less than 2); WBC/HPF Greater than 50 HPF (0-3)
[2020-07-03 04:33] LABS: Urine Culture Reflex Yes Yes
[2020-07-03 04:41] LABS: SARS-CoV-2 NAA Rapid Test Not Detected (NotDetected)
[2020-07-03 05:56] LABS: #Basophils 0.1 thou/uL (0.0-0.2); #Eosinphils 0.1 thou/uL (0.0-0.7); #Lymphocytes 1.3 thou/uL (1.20-3.40); #Neutrophils 7.1 thou/uL (1.40-6.50); %Basophils 0.9 % (0.0-1.0); %Eosinophils 0.9 % (0.0-10.0); %Lymphocytes 13.3 % (21.0-51.0); %Monocytes 10.9 % (0.0-10.0); %Neutrophils 74.1 % (42.0-75.0); Hemoglobin 11.2 g/dL (12.0-16.0); Mean Corpuscular HGB CONC 33.5 g/dL (32.0-36.0); Mean Corpuscular Hemoglobin 30.6 pg (27.0-31.0); Mean Corpuscular Volume 91.6 fL (78.0-98.0); Mean Platelet Volume 10.7 fL (7.4-10.4); Platelet Count 113 thou/uL (130-400); RBC Distribution Width 14.9 % (11.5-14.5); Red Blood Cell (RBC) Count 3.66 mill/uL (4.20-5.40); White Blood Cell (WBC) Count 9.6 thou/uL (4.8-10.8)
[2020-07-03 05:58] LABS: INR-International Normal Ratio 1.1; PTT 26.7 sec (22.9-36.1); Prothrombin Time 14.3 sec (12.0-14.7)
[2020-07-03 06:12] LABS: CK (CPK) 77 U/L (29-168); Phosphorus 3.5 mg/dL (2.3-4.7)
[2020-07-03 06:15] LABS: Anion Gap 14 mmol/L (10-20); BUN (Urea Nitrogen) 20 mg/dL (9.8-20.1); Calc. Creatinine Clearance 38 mL/min (70-130); Calcium 9.3 mg/dL (7.8-10.44); Carbon Dioxide 24 mmol/L (23-31); Chloride 99 mmol/L (98-107); Glucose 266 mg/dL (83-110); Magnesium 2.8 mg/dL (1.6-2.6); Potassium 4.3 mmol/L (3.5-5.1); Sodium 133 mmol/L (136-145)
[2020-07-03] MEDS: Pancrelipase DR 12,000 1 CAP PO SCH ×3 (06:20→18:47)
[2020-07-03] MEDS: Levothyroxine Sodium 125 MCG TAB PO SCH (06:20)
[2020-07-03] MEDS: Cholecalciferol 1,000 UNITS (25 MCG) TAB PO SCH (07:55)
[2020-07-03] MEDS: Famotidine 20 MG TAB PO SCH ×2 (07:55→20:50)
[2020-07-03] MEDS: Amitriptyline HCl 25 MG TAB PO SCH (07:55)
[2020-07-03] MEDS: Carvedilol 25 MG TAB PO SCH ×2 (07:55→20:50)
[2020-07-03] MEDS: Senokot S 8.6-50 MG TAB PO SCH ×2 (08:01→20:50)
[2020-07-03] MEDS: Polyethylene Glycol 3350 17 GM Packet PO SCH (08:01)
[2020-07-03] MEDS: Famotidine/PF 20 mg/2ml Vial SLOW IVP SCH ×2 (08:02→20:41)
[2020-07-03] MEDS: Spironolactone 100 MG TAB PO SCH (08:02)
[2020-07-03] MEDS ORDERED: Fentanyl 100 MCG/2 ML VIAL ONE (11:59)
[2020-07-03] MEDS ORDERED: Ondansetron PF 4 MG/2 ML Vial ONE (12:45)
[2020-07-03] MEDS ORDERED: PHENYLEPHRINE-NS 100 MCG/ML 10 ML SYRINGE ONE (12:45)
[2020-07-03] MEDS ORDERED: Lidocaine 1% PF 5 ML VIAL ONE (12:45)
[2020-07-03] MEDS ORDERED: ePHEDrine Sulfate 50 MG/10 ML VIAL ONE (12:45)
[2020-07-03] MEDS ORDERED: Dexamethasone 20 MG/5 ML VIAL ONE (12:45)
[2020-07-03] MEDS ORDERED: Rocuronium Bromide 10 MG/ML (10ML VIAL) ONE (12:45)
[2020-07-03] MEDS ORDERED: Glycopyrrolate 0.2 MG/ML 5 ML SYRINGE ONE (12:45)
[2020-07-03] MEDS ORDERED: PROPOFOL 200 MG/20 ML VIAL ONE (12:45)
[2020-07-03] MEDS ORDERED: Phenylephrine 10 MG/ML VIAL ONE (13:45)
[2020-07-03] MEDS ORDERED: CEFAZOLIN 2 GM in Premix Bag 1 BAG IVPB SCH (14:00)
[2020-07-03] MEDS ORDERED: Ondansetron HCl/PF 4 MG/2 ML Vial IVP PRN (14:03)
[2020-07-03] MEDS: CEFAZOLIN 2 GM in Premix Bag 1 BAG IVPB SCH (20:51)
[2020-07-03] MEDS ORDERED: Atorvastatin Calcium 10 MG TAB PO SCH (21:00)
[2020-07-04] MEDS: Acetaminophen 325 MG TAB PO SCH ×2 (05:44→12:03)
[2020-07-04] MEDS: CEFAZOLIN 2 GM in Premix Bag 1 BAG IVPB SCH (05:44)
[2020-07-04] MEDS: traMADol HCl 50 MG TAB PO SCH ×2 (05:44→12:03)
[2020-07-04] MEDS: Levothyroxine Sodium 125 MCG TAB PO SCH (05:45)
[2020-07-04 06:10] LABS: #Lymphocytes 0.8 thou/uL (1.20-3.40); #Neutrophils 8.1 thou/uL (1.40-6.50); %Basophils 0.3 % (0.0-1.0); %Lymphocytes 8.2 % (21.0-51.0); %Neutrophils 81.5 % (42.0-75.0); Hemoglobin 9.4 g/dL (12.0-16.0); Mean Corpuscular HGB CONC 32.9 g/dL (32.0-36.0); Mean Corpuscular Volume 94.2 fL (78.0-98.0); Mean Platelet Volume 10.6 fL (7.4-10.4); Platelet Count 88 thou/uL (130-400); RBC Distribution Width 14.8 % (11.5-14.5); Red Blood Cell (RBC) Count 3.03 mill/uL (4.20-5.40); White Blood Cell (WBC) Count 9.9 thou/uL (4.8-10.8)
[2020-07-04 06:29] LABS: Anion Gap 11 mmol/L (10-20); BUN (Urea Nitrogen) 21 mg/dL (9.8-20.1); Calc. Creatinine Clearance 42 mL/min (70-130); Calcium 8.4 mg/dL (7.8-10.44); Carbon Dioxide 25 mmol/L (23-31); Chloride 102 mmol/L (98-107); Glucose 241 mg/dL (83-110); Magnesium 1.8 mg/dL (1.6-2.6); Phosphorus 3.4 mg/dL (2.3-4.7); Potassium 4.8 mmol/L (3.5-5.1); Sodium 133 mmol/L (136-145)
[2020-07-04] MEDS: Pancrelipase DR 12,000 1 CAP PO SCH ×2 (06:52→12:03)
[2020-07-04] MEDS: Polyethylene Glycol 3350 17 GM Packet PO SCH (09:16)
[2020-07-04] MEDS: Famotidine 20 MG TAB PO SCH (09:19)
[2020-07-04] MEDS: Amitriptyline HCl 25 MG TAB PO SCH (09:20)
[2020-07-04] MEDS: Carvedilol 25 MG TAB PO SCH (09:20)
[2020-07-04] MEDS: Sodium Chloride 0.9% 1,000 ML IV SCH (09:22)
[2020-07-04] MEDS: Spironolactone 100 MG TAB PO SCH (09:24)
[2020-07-04] MEDS: Cholecalciferol 1,000 UNITS (25 MCG) TAB PO SCH (09:25)
[2020-07-04] MEDS: Senokot S 8.6-50 MG TAB PO SCH (09:25)
[2020-07-04] MEDS: Famotidine/PF 20 mg/2ml Vial SLOW IVP SCH (09:25)
[2020-07-04] MEDS ORDERED: BIOTENE MOUTH SPRAY 44.3 ML MM PRN (12:25)
[2020-07-04] MEDS ORDERED: Cephalexin 250 MG CAP PO SCH (15:00)
[2020-07-04 17:34] VITALS: BP 107/63; TEMP 97.8
== END 2020-07-04 15:00 | DRG 522 ==
LOC: SJJU 23:04
PROVIDERS: ADMIT Surgery; ATTEND Surgery
PROC: 0SRR0JA Replacement of Right Hip Joint, Femoral Surface with Synthetic Substitute, Uncemented, Open Approach (ICD-10-PCS; principal; 2020-07-03)
DX: S72.001A Fracture of unspecified part of neck of right femur, initial encounter for closed fracture (principal); N17.9 Acute kidney failure, unspecified; N39.0 Urinary tract infection, site not specified; W10.9XXA Fall (on) (from) unspecified stairs and steps, initial encounter; I10 Essential (primary) hypertension; F41.9 Anxiety disorder, unspecified; E11.65 Type 2 diabetes mellitus with hyperglycemia; E03.9 Hypothyroidism, unspecified; Z20.822 Contact with and (suspected) exposure to COVID-19; B96.20 Unspecified Escherichia coli [E. coli] as the cause of diseases classified elsewhere; Z90.49 Acquired absence of other specified parts of digestive tract; Y92.009 Unspecified place in unspecified non-institutional (private) residence as the place of occurrence of the external cause; Z88.2 Allergy status to sulfonamides; Z88.8 Allergy status to other drugs, medicaments and biological substances
CPT/HCPCS: 36415; 36416; 72170; 80048; 81001; 82550; 83735; 84100; 85025; 85610; 85730; 86850; 86900; 86901; 87077; 87086; 87186; C1713; J0690; J1100; J1815; J2370; J2405; J2704; J3010; J3475; U0002

== ENCOUNTER 2021-02-05 13:21 | Inpatient (IN) | payer MEDICARE, BC ==
[2021-02-05] MEDS ORDERED: Dextrose 5% in Water 1,000 ML IV PRN (17:44)
[2021-02-05] MEDS ORDERED: Dextrose 50% Abboject 50 ML SYRINGE SLOW IVP PRN (17:44)
[2021-02-05] MEDS ORDERED: hydrALAZINE 20 MG/ML VIAL SLOW IVP PRN (17:44)
[2021-02-05] MEDS ORDERED: Ondansetron PF 4 MG/2 ML Vial IVP PRN (17:44)
[2021-02-05] MEDS ORDERED: Morphine 4 MG/ML VIAL SLOW IVP PRN ×2 (17:44→17:57)
[2021-02-05] MEDS ORDERED: Sodium Chloride 0.9% 1,000 ML IV SCH (17:45)
[2021-02-05] MEDS ORDERED: Dextrose 5 %-0.45 % NaCl 1,000 ML IV SCH (17:45)
[2021-02-05] MEDS ORDERED: Ibuprofen 800 MG TAB PO PRN (17:50)
[2021-02-05] MEDS ORDERED: traMADol HCl 50 MG TAB PO PRN (17:50)
[2021-02-05] MEDS ORDERED: Cyclobenzaprine 10 MG TAB PO PRN (17:50)
[2021-02-05] MEDS: Senokot S 8.6-50 MG TAB PO SCH (21:04)
[2021-02-05] MEDS: Famotidine 20 MG TAB PO SCH (21:04)
[2021-02-05] MEDS: traMADol HCl 50 MG TAB PO SCH (21:05)
[2021-02-05] MEDS: Acetaminophen 325 MG TAB PO SCH (21:05)
[2021-02-06] MEDS ORDERED: Sodium Chloride 0.9% 1,000 ML IV SCH (02:00)
[2021-02-06] MEDS: Acetaminophen 325 MG TAB PO SCH ×5 (03:20→20:50)
[2021-02-06] MEDS: traMADol HCl 50 MG TAB PO SCH ×2 (03:20→06:20)
[2021-02-06 06:08] LABS: Hemoglobin 8.6 g/dL (12.0-16.0); Mean Corpuscular HGB CONC 32.6 g/dL (32.0-36.0); Mean Corpuscular Hemoglobin 29.7 pg (27.0-31.0); Mean Corpuscular Volume 91.3 fL (78.0-98.0); Mean Platelet Volume 9.5 fL (7.4-10.4); Platelet Count 128 thou/uL (130-400); RBC Distribution Width 15.7 % (11.5-14.5); Red Blood Cell (RBC) Count 2.89 mill/uL (4.20-5.40); White Blood Cell (WBC) Count 6.5 thou/uL (4.8-10.8)
[2021-02-06 06:27] LABS: Anion Gap 12 mmol/L (10-20); BUN (Urea Nitrogen) 26 mg/dL (9.8-20.1); Calc. Creatinine Clearance 0 mL/min (70-130); Calcium 8.7 mg/dL (7.8-10.44); Carbon Dioxide 24 mmol/L (23-31); Chloride 99 mmol/L (98-107); Glucose 165 mg/dL (83-110); Magnesium 1.6 mg/dL (1.6-2.6); Potassium 4.7 mmol/L (3.5-5.1); Sodium 130 mmol/L (136-145)
[2021-02-06] MEDS: Famotidine 20 MG TAB PO SCH ×2 (08:16→20:51)
[2021-02-06 08:17] LABS: Band 18 % (5-11); Lymphocytes 33 % (21-51); MDiff Complete? YES; Monocytes 2 % (0-10); Neutrophil 47 % (42-75)
[2021-02-06] MEDS: Carvedilol 25 MG TAB PO SCH ×2 (08:17→20:51)
[2021-02-06] MEDS: Pancrelipase DR 12,000 1 CAP PO SCH ×3 (08:27→17:10)
[2021-02-06] MEDS: Polyethylene Glycol 3350 17 GM Packet PO SCH (08:28)
[2021-02-06] MEDS: Cholecalciferol 1,000 UNITS (25 MCG) TAB PO SCH (08:28)
[2021-02-06] MEDS: Senokot S 8.6-50 MG TAB PO SCH ×2 (08:28→22:16)
[2021-02-06] MEDS ORDERED: Dextrose 5 % And 0.9 % NaCl 1,000 ML IV SCH (08:30)
[2021-02-06] MEDS ORDERED: traMADol HCl 50 MG TAB PO SCH (09:00)
[2021-02-06] MEDS ORDERED: FLU VACC QS2021-22(65YR UP)/PF 240 MCG/0.7 ML SYRINGE IM ONE (09:00)
[2021-02-06 09:40] LABS: SARS-CoV-2 NAA Rapid Test Not Detected (NotDetected)
[2021-02-06] MEDS ORDERED: Fentanyl 100 MCG/2 ML VIAL ONE (09:44)
[2021-02-06] MEDS ORDERED: ceFAZolin 2 GM/DEX 5% 100 ML BAG ONE (09:54)
[2021-02-06] MEDS ORDERED: Magnesium 2 GM/50 ML 2 GM in Premix Bag 1 BAG IVPB SCH (10:15)
[2021-02-06] MEDS ORDERED: ceFAZolin Sodium/D5W 2 GM in Premix Bag 1 BAG IVPB SCH (10:15)
[2021-02-06] MEDS ORDERED: Glycopyrrolate 0.2 MG/ML 5 ML SYRINGE ONE (10:31)
[2021-02-06] MEDS ORDERED: PROPOFOL 200 MG/20 ML VIAL ONE (10:31)
[2021-02-06] MEDS ORDERED: Metoclopramide HCl 10 MG/2 ML VIAL ONE (10:31)
[2021-02-06] MEDS ORDERED: Phenylephrine 10 MG/ML VIAL ONE (10:31)
[2021-02-06] MEDS ORDERED: Ondansetron PF 4 MG/2 ML Vial ONE (10:31)
[2021-02-06] MEDS ORDERED: Rocuronium Bromide 10 MG/ML (10ML VIAL) ONE (10:31)
[2021-02-06] MEDS ORDERED: Lidocaine 1% PF 5 ML VIAL ONE (10:31)
[2021-02-06] MEDS ORDERED: Ondansetron HCl/PF 4 MG/2 ML Vial IVP PRN (11:55)
[2021-02-06] MEDS ORDERED: Morphine Sulfate 2 MG/ML SYRINGE SLOW IVP PRN (11:55)
[2021-02-06] MEDS ORDERED: Promethazine HCl 25 MG/ML VIAL IVPB PRN (11:55)
[2021-02-06] MEDS ORDERED: Promethazine HCl 25 MG/ML VIAL IM PRN (11:55)
[2021-02-06] MEDS ORDERED: Sodium Chloride 0.9% 500 ML IV SCH ×2 (17:00→18:00)
[2021-02-06] MEDS: Ferrous Sulfate 325 MG TAB PO SCH (17:10)
[2021-02-06] MEDS: Insulin Regular 300 UNITS/3 ML VIAL SC PRN ×2 (18:17→20:40)
[2021-02-06] MEDS: ceFAZolin Sodium/D5W 2 GM in Premix Bag 1 BAG IVPB SCH (18:45)
[2021-02-06] MEDS: Ascorbic Acid 500 mg Chewable Tablet PO SCH (20:51)
[2021-02-07] MEDS: Insulin Regular 300 UNITS/3 ML VIAL SC PRN ×6 (00:28→20:30)
[2021-02-07] MEDS: Acetaminophen 325 MG TAB PO SCH ×4 (02:55→20:27)
[2021-02-07] MEDS: ceFAZolin Sodium/D5W 2 GM in Premix Bag 1 BAG IVPB SCH (02:55)
[2021-02-07 05:57] LABS: #Eosinphils 0.1 thou/uL (0.0-0.7); #Lymphocytes 0.3 thou/uL (1.20-3.40); #Monocytes 0.8 thou/uL (0.11-0.59); #Neutrophils 5.3 thou/uL (1.40-6.50); %Basophils 0.7 % (0.0-1.0); %Eosinophils 1.1 % (0.0-10.0); %Lymphocytes 4.8 % (21.0-51.0); %Monocytes 12.2 % (0.0-10.0); %Neutrophils 81.2 % (42.0-75.0); Mean Corpuscular HGB CONC 32.9 g/dL (32.0-36.0); Mean Corpuscular Hemoglobin 30.5 pg (27.0-31.0); Mean Corpuscular Volume 92.8 fL (78.0-98.0); Mean Platelet Volume 9.9 fL (7.4-10.4); Platelet Count 107 thou/uL (130-400); RBC Distribution Width 15.5 % (11.5-14.5); Red Blood Cell (RBC) Count 2.28 mill/uL (4.20-5.40); White Blood Cell (WBC) Count 6.5 thou/uL (4.8-10.8)
[2021-02-07] MEDS: Levothyroxine Sodium 125 MCG TAB PO SCH (06:07)
[2021-02-07 07:01] LABS: Anion Gap 11 mmol/L (10-20); BUN (Urea Nitrogen) 28 mg/dL (9.8-20.1); Calc. Creatinine Clearance 0 mL/min (70-130); Calcium 7.9 mg/dL (7.8-10.44); Carbon Dioxide 23 mmol/L (23-31); Chloride 97 mmol/L (98-107); Glucose 393 mg/dL (83-110); Magnesium 1.8 mg/dL (1.6-2.6); Phosphorus 3.5 mg/dL (2.3-4.7); Potassium 5.1 mmol/L (3.5-5.1); Sodium 126 mmol/L (136-145)
[2021-02-07] MEDS: Pancrelipase DR 12,000 1 CAP PO SCH ×3 (07:40→16:32)
[2021-02-07] MEDS: Ferrous Sulfate 325 MG TAB PO SCH ×2 (07:41→16:35)
[2021-02-07] MEDS ORDERED: Magnesium 2 GM/50 ML 2 GM in Premix Bag 1 BAG IVPB SCH (09:00)
[2021-02-07] MEDS: Carvedilol 25 MG TAB PO SCH ×2 (10:14→20:27)
[2021-02-07] MEDS: Famotidine 20 MG TAB PO SCH ×2 (10:29→20:28)
[2021-02-07] MEDS: Senokot S 8.6-50 MG TAB PO SCH ×2 (10:29→20:28)
[2021-02-07] MEDS: Ascorbic Acid 500 mg Chewable Tablet PO SCH ×2 (10:29→20:28)
[2021-02-07] MEDS: Cholecalciferol 1,000 UNITS (25 MCG) TAB PO SCH (10:29)
[2021-02-07] MEDS: Lantus 1000 UNITS/10 ML VIAL SC SCH (10:35)
[2021-02-07] MEDS: Polyethylene Glycol 3350 17 GM Packet PO SCH (11:21)
[2021-02-07] MEDS ORDERED: Lantus 1000 UNITS/10 ML VIAL SC SCH (21:00)
[2021-02-08] MEDS: Acetaminophen 325 MG TAB PO SCH ×4 (03:08→21:08)
[2021-02-08 05:30] LABS: Hemoglobin 9.7 g/dL (12.0-16.0); Mean Corpuscular HGB CONC 33.5 g/dL (32.0-36.0); Mean Corpuscular Hemoglobin 30.7 pg (27.0-31.0); Mean Corpuscular Volume 91.7 fL (78.0-98.0); Platelet Count 103 thou/uL (130-400); RBC Distribution Width 14.7 % (11.5-14.5); Red Blood Cell (RBC) Count 3.15 mill/uL (4.20-5.40); White Blood Cell (WBC) Count 5.4 thou/uL (4.8-10.8)
[2021-02-08 05:48] LABS: Anion Gap 11 mmol/L (10-20); BUN (Urea Nitrogen) 25 mg/dL (9.8-20.1); Calc. Creatinine Clearance 0 mL/min (70-130); Calcium 8.5 mg/dL (7.8-10.44); Carbon Dioxide 24 mmol/L (23-31); Chloride 102 mmol/L (98-107); Glucose 214 mg/dL (83-110); Phosphorus 2.3 mg/dL (2.3-4.7); Potassium 4.5 mmol/L (3.5-5.1); Sodium 132 mmol/L (136-145)
[2021-02-08] MEDS: Levothyroxine Sodium 125 MCG TAB PO SCH (06:03)
[2021-02-08 06:16] LABS: Anisocytosis SLIGHT = 6-15 cells (100X) (0-5/hpf); Band 33 % (5-11); Eosinophils 3 % (0-10); Lymphocytes 12 % (21-51); MDiff Complete? YES; Monocytes 21 % (0-10); Neutrophil 31 % (42-75); Platelet Morphology Comment Appears Decreased
[2021-02-08] MEDS: Pancrelipase DR 12,000 1 CAP PO SCH ×3 (08:28→17:48)
[2021-02-08] MEDS: Cholecalciferol 1,000 UNITS (25 MCG) TAB PO SCH (09:34)
[2021-02-08] MEDS: Polyethylene Glycol 3350 17 GM Packet PO SCH (09:34)
[2021-02-08] MEDS: Aspirin 81 mg Enteric Coated Tablet PO SCH ×2 (09:34→21:09)
[2021-02-08] MEDS: Senokot S 8.6-50 MG TAB PO SCH ×2 (09:35→21:09)
[2021-02-08] MEDS: Carvedilol 25 MG TAB PO SCH ×2 (09:35→21:09)
[2021-02-08] MEDS: Famotidine 20 MG TAB PO SCH ×2 (09:35→21:09)
[2021-02-08] MEDS: Ascorbic Acid 500 mg Chewable Tablet PO SCH ×2 (09:36→21:08)
[2021-02-08] MEDS: Ferrous Sulfate 325 MG TAB PO SCH ×2 (09:36→17:47)
[2021-02-08] MEDS: Lantus 1000 UNITS/10 ML VIAL SC SCH (09:36)
[2021-02-08] MEDS: Insulin Regular 300 UNITS/3 ML VIAL SC PRN ×3 (11:50→21:11)
[2021-02-08] MEDS ORDERED: Lantus 1000 UNITS/10 ML VIAL SC SCH (21:00)
[2021-02-09] MEDS: Acetaminophen 325 MG TAB PO SCH ×4 (03:56→20:41)
[2021-02-09 05:17] LABS: Hemoglobin 9.8 g/dL (12.0-16.0); Mean Corpuscular HGB CONC 33.7 g/dL (32.0-36.0); Mean Corpuscular Hemoglobin 31.7 pg (27.0-31.0); Mean Corpuscular Volume 94.1 fL (78.0-98.0); Mean Platelet Volume 9.1 fL (7.4-10.4); Platelet Count 120 thou/uL (130-400); RBC Distribution Width 15.3 % (11.5-14.5); Red Blood Cell (RBC) Count 3.09 mill/uL (4.20-5.40); White Blood Cell (WBC) Count 5.6 thou/uL (4.8-10.8)
[2021-02-09 05:29] LABS: Anion Gap 11 mmol/L (10-20); BUN (Urea Nitrogen) 26 mg/dL (9.8-20.1); Calc. Creatinine Clearance 0 mL/min (70-130); Calcium 8.7 mg/dL (7.8-10.44); Carbon Dioxide 26 mmol/L (23-31); Chloride 102 mmol/L (98-107); Glucose 178 mg/dL (83-110); Magnesium 1.7 mg/dL (1.6-2.6); Phosphorus 2.5 mg/dL (2.3-4.7); Potassium 4.5 mmol/L (3.5-5.1); Sodium 134 mmol/L (136-145)
[2021-02-09 05:44] LABS: Band 21 % (5-11); Eosinophils 6 % (0-10); Lymphocytes 17 % (21-51); MDiff Complete? YES; Monocytes 18 % (0-10); Neutrophil 37 % (42-75); Reactive Lymphocytes 1 % (0-10)
[2021-02-09] MEDS: Insulin Regular 300 UNITS/3 ML VIAL SC PRN ×4 (06:17→20:43)
[2021-02-09] MEDS: Levothyroxine Sodium 125 MCG TAB PO SCH (06:17)
[2021-02-09] MEDS ORDERED: SODIUM CHLORIDE 0.9% IVPB SCH (08:30)
[2021-02-09] MEDS ORDERED: SODIUM PHOSPHATE IVPB SCH (08:30)
[2021-02-09] MEDS ORDERED: MAGNESIUM SULFATE IVPB SCH (08:30)
[2021-02-09] MEDS: Pancrelipase DR 12,000 1 CAP PO SCH ×3 (09:22→18:01)
[2021-02-09] MEDS: Lantus 1000 UNITS/10 ML VIAL SC SCH (09:23)
[2021-02-09] MEDS: Ferrous Sulfate 325 MG TAB PO SCH ×2 (09:23→18:02)
[2021-02-09] MEDS: Cholecalciferol 1,000 UNITS (25 MCG) TAB PO SCH (09:24)
[2021-02-09] MEDS: Aspirin 81 mg Enteric Coated Tablet PO SCH ×2 (09:24→20:40)
[2021-02-09] MEDS: Ascorbic Acid 500 mg Chewable Tablet PO SCH ×2 (09:24→20:41)
[2021-02-09] MEDS: Carvedilol 25 MG TAB PO SCH ×2 (09:24→20:41)
[2021-02-09] MEDS: Senokot S 8.6-50 MG TAB PO SCH ×2 (11:06→20:41)
[2021-02-09] MEDS: Polyethylene Glycol 3350 17 GM Packet PO SCH (11:06)
[2021-02-09] MEDS ORDERED: Dextrose 5% in Water 1,000 ML IV PRN (16:49)
[2021-02-09] MEDS ORDERED: Dextrose 50% Abboject 50 ML SYRINGE SLOW IVP PRN (16:49)
[2021-02-09] MEDS ORDERED: Lantus 1000 UNITS/10 ML VIAL SC SCH ×2 (16:49→21:00)
[2021-02-10] MEDS: Acetaminophen 325 MG TAB PO SCH ×3 (04:30→14:52)
[2021-02-10] MEDS: Levothyroxine Sodium 125 MCG TAB PO SCH (05:59)
[2021-02-10] MEDS: Pancrelipase DR 12,000 1 CAP PO SCH ×3 (05:59→16:32)
[2021-02-10] MEDS: Cholecalciferol 1,000 UNITS (25 MCG) TAB PO SCH (08:36)
[2021-02-10] MEDS: Carvedilol 25 MG TAB PO SCH (08:36)
[2021-02-10] MEDS: Ascorbic Acid 500 mg Chewable Tablet PO SCH (08:36)
[2021-02-10] MEDS: Aspirin 81 mg Enteric Coated Tablet PO SCH (08:37)
[2021-02-10] MEDS: Ferrous Sulfate 325 MG TAB PO SCH ×2 (08:37→16:32)
[2021-02-10] MEDS: Polyethylene Glycol 3350 17 GM Packet PO SCH (08:38)
[2021-02-10] MEDS: Senokot S 8.6-50 MG TAB PO SCH (08:38)
[2021-02-10] MEDS ORDERED: Lantus 1000 UNITS/10 ML VIAL SC SCH (09:00)
[2021-02-10] MEDS: Insulin Regular 300 UNITS/3 ML VIAL SC PRN ×2 (11:47→16:32)
[2021-02-10 16:01] VITALS: BP 108/64; TEMP 98
== END 2021-02-10 18:04 | DRG 481 ==
LOC: SJJU 13:21
PROVIDERS: ADMIT Specialist; ATTEND Specialist
PROC: 0QH706Z Insertion of Intramedullary Internal Fixation Device into Left Upper Femur, Open Approach (ICD-10-PCS; principal; 2021-02-06)
PROC: 30233N1 Transfusion of Nonautologous Red Blood Cells into Peripheral Vein, Percutaneous Approach (ICD-10-PCS; 2021-02-07)
DX: S72.142A Displaced intertrochanteric fracture of left femur, initial encounter for closed fracture (principal); Z20.822 Contact with and (suspected) exposure to COVID-19; Z66 Do not resuscitate; N17.9 Acute kidney failure, unspecified; E87.1 Hypo-osmolality and hyponatremia; E03.9 Hypothyroidism, unspecified; I10 Essential (primary) hypertension; F41.9 Anxiety disorder, unspecified; E11.649 Type 2 diabetes mellitus with hypoglycemia without coma; W18.30XA Fall on same level, unspecified, initial encounter; Z96.641 Presence of right artificial hip joint; I48.91 Unspecified atrial fibrillation; D64.89 Other specified anemias; I95.89 Other hypotension; Z79.899 Other long term (current) drug therapy; Z28.21 Immunization not carried out because of patient refusal; Z90.49 Acquired absence of other specified parts of digestive tract; Z79.84 Long term (current) use of oral hypoglycemic drugs; Z88.6 Allergy status to analgesic agent; Z88.2 Allergy status to sulfonamides
CPT/HCPCS: 36415; 36416; 36430; 70450; 71045; 72170; 76000; 80048; 80053; 83735; 84100; 84484; 85025; 86850; 86900; 86901; 93005; C1713; J1815; J2370; J2405; J2704; J2765; J3010; J3475; J7042; J7050; J7070; P9016; U0002

== ENCOUNTER 2024-01-16 10:20 | Day surgery (SDC) | payer MEDICARE ==
[2024-01-15 13:37] VITALS: BMI 18.8
[2024-01-16] MEDS ORDERED: CEFAZOLIN 2 GM VIAL ONE (12:29)
[2024-01-16] MEDS ORDERED: fentaNYL PF 100 MCG/2 ML SYRINGE ONE ×2 (12:36→13:53)
[2024-01-16] MEDS ORDERED: PROPOFOL 20 ML ONE (12:36)
[2024-01-16] MEDS ORDERED: Rocuronium Bromide 10 MG/ML (10ML VIAL) ONE (12:57)
[2024-01-16] MEDS ORDERED: Sodium Chloride 0.9% 250 ML 250 ML ONE (12:57)
[2024-01-16] MEDS ORDERED: ePHEDrine Sulfate 50 MG/10 ML VIAL ONE (12:57)
[2024-01-16] MEDS ORDERED: Lidocaine 2% PF 5 ML VIAL ONE (12:57)
[2024-01-16] MEDS ORDERED: SUGAMMADEX SODIUM 200 MG/2 ML VIAL ONE (13:30)
[2024-01-16] MEDS ORDERED: Ondansetron PF 4 MG/2 ML Vial ONE (13:34)
== END 2024-01-16 14:50 | disposition home or self-care (01) ==
LOC: SDC 10:20
PROVIDERS: ATTEND Orthopaedic Surgery Hand Surgery
PROC: 0PSHXZZ Reposition Right Radius, External Approach (ICD-10-PCS; principal; 2024-01-16)
DX: S52.509A Unspecified fracture of the lower end of unspecified radius, initial encounter for closed fracture (principal); I48.91 Unspecified atrial fibrillation; E11.9 Type 2 diabetes mellitus without complications; E78.5 Hyperlipidemia, unspecified; E03.9 Hypothyroidism, unspecified; H91.90 Unspecified hearing loss, unspecified ear; Z90.49 Acquired absence of other specified parts of digestive tract; Z88.2 Allergy status to sulfonamides; Z88.5 Allergy status to narcotic agent; Z79.890 Hormone replacement therapy; Z79.899 Other long term (current) drug therapy; W19.XXXA Unspecified fall, initial encounter
CPT/HCPCS: 25606; 73100; 82962; J2405; J2704; J7050; 36416

== ENCOUNTER 2024-11-09 11:17 | Inpatient (IN) | payer MEDICARE ==
[2024-11-09 13:53] VITALS: BMI 19.5
[2024-11-09] MEDS ORDERED: Senokot S 8.6-50 MG TAB PO PRN (14:14)
[2024-11-09] MEDS ORDERED: Ondansetron PF 4 MG/2 ML Vial IVP PRN (14:14)
[2024-11-09] MEDS ORDERED: Bisacodyl 10 MG SUPP PR PRN (14:14)
[2024-11-09] MEDS: Acetaminophen 325 MG TAB PO SCH (15:35)
[2024-11-09] MEDS: Bisacodyl 10 MG SUPP PR SCH (15:35)
[2024-11-09] MEDS ORDERED: Dextrose 50% Abboject 50 ML SYRINGE SLOW IVP PRN (21:16)
[2024-11-09] MEDS ORDERED: Glucagon 1 MG/ML KIT IM PRN (21:16)
[2024-11-09] MEDS: Heparin 5,000 UNITS/ML VIAL SC SCH (23:31)
[2024-11-10] MEDS: Insulin Glargine 30 UNITS/0.3 ML VIAL SC SCH ×2 (00:10→08:47)
[2024-11-10 04:47] LABS: ALT (SGPT) 28 U/L (Less than 34); AST (SGOT) 47 U/L (11-34); Albumin 2.4 g/dL (3.1-4.5); Alkaline Phosphatase 195 U/L (40-110); Anion Gap 17 mmol/L (10-20); BUN (Urea Nitrogen) 81 mg/dL (9.8-20.1); BUN/Creatinine Ratio 31.15; Bilirubin, Total 0.5 mg/dL (0.3-1.2); Calc. Creatinine Clearance 12 mL/min (70-130); Calcium 8.9 mg/dL (7.8-10.44); Carbon Dioxide 25 mmol/L (23-31); Chloride 98 mmol/L (98-107); Globulin 4.7 g/dL (2.4-3.5); Glucose 197 mg/dL (83-110); Potassium 3.7 mmol/L (3.5-5.1); Sodium 136 mmol/L (136-145)
[2024-11-10 05:44] LABS: #Basophils 0.06 10x3/uL (0.0-0.2); #Eosinophils 0.37 10x3/uL (0.0-0.7); #Monocytes 0.67 10x3/uL (0.11-0.59); #Neutrophils 5.08 10x3/uL (1.40-6.50); %Basophils 0.8 % (0.0-1.0); %Eosinophils 5.2 % (0.0-10.0); %Lymphocytes 12.8 % (21.0-51.0); %Monocytes 9.4 % (0.0-10.0); %Neutrophils 71.7 % (42.0-75.0); Hematocrit 28.7 % (36.0-47.0); Hemoglobin 8.9 g/dL (12.0-16.0); Mean Corpuscular Hemoglobin 28.2 pg (27.0-31.0); Mean Corpuscular Volume 90.8 fL (78.0-98.0); Platelet Count 103 10x3/uL (130-400); Red Blood Cell (RBC) Count 3.16 mill/uL (4.20-5.40); White Blood Cell (WBC) Count 7.10 10x3/uL (4.8-10.8)
[2024-11-10 06:54] LABS: Sodium, Urine 89.0 mmol/L (Not Available)
[2024-11-10] MEDS: Cholecalciferol 1,000 UNITS (25 MCG) TAB PO SCH (08:51)
[2024-11-10] MEDS: Pantoprazole 40 MG DR.TAB PO SCH (08:51)
[2024-11-10] MEDS ORDERED: Epoetin (ESRD) 10,000 UNITS/ML VIAL SC SCH (10:30)
[2024-11-10] MEDS: EPOETIN ALFA-EPBX (ESRD) 10,000 UNITS/ML VIAL SC SCH (12:33)
[2024-11-11] MEDS: Dextrose 50% Abboject 50 ML SYRINGE ONE (04:01)
[2024-11-11 09:02] LABS: Anion Gap 14 mmol/L (10-20); BUN (Urea Nitrogen) 61 mg/dL (9.8-20.1); Calc. Creatinine Clearance 17 mL/min (70-130); Calcium 8.6 mg/dL (7.8-10.44); Carbon Dioxide 26 mmol/L (23-31); Chloride 102 mmol/L (98-107); Glucose 102 mg/dL (83-110); Potassium 3.6 mmol/L (3.5-5.1); Sodium 138 mmol/L (136-145)
[2024-11-11] MEDS ORDERED: EPOETIN ALFA-EPBX (ESRD) 10,000 UNITS/ML VIAL SC SCH (11:15)
[2024-11-11] MEDS: Ergocalciferol 1.25 MG(50,000 UNITS) CAP PO SCH (12:00)
[2024-11-12 01:24] VITALS: BMI 19.5
[2024-11-12 04:42] LABS: #Basophils 0.05 10x3/uL (0.0-0.2); #Eosinophils 0.47 10x3/uL (0.0-0.7); #Monocytes 0.59 10x3/uL (0.11-0.59); #Neutrophils 3.52 10x3/uL (1.40-6.50); %Basophils 0.9 % (0.0-1.0); %Eosinophils 8.8 % (0.0-10.0); %Lymphocytes 12.8 % (21.0-51.0); %Monocytes 11.1 % (0.0-10.0); %Neutrophils 66.0 % (42.0-75.0); Hematocrit 30.4 % (36.0-47.0); Hemoglobin 9.2 g/dL (12.0-16.0); Mean Corpuscular Hemoglobin 28.4 pg (27.0-31.0); Mean Corpuscular Volume 93.8 fL (78.0-98.0); Platelet Count 73 10x3/uL (130-400); Red Blood Cell (RBC) Count 3.24 mill/uL (4.20-5.40); White Blood Cell (WBC) Count 5.33 10x3/uL (4.8-10.8)
[2024-11-12 04:52] LABS: Anion Gap 13 mmol/L (10-20); BUN (Urea Nitrogen) 52 mg/dL (9.8-20.1); Calc. Creatinine Clearance 18 mL/min (70-130); Calcium 8.6 mg/dL (7.8-10.44); Carbon Dioxide 26 mmol/L (23-31); Chloride 103 mmol/L (98-107); Glucose 112 mg/dL (83-110); Iron 32 ug/dL (50-170); Iron Binding Capacity, Total 248 mcg/dL (265-497); Potassium 3.4 mmol/L (3.5-5.1); Sodium 139 mmol/L (136-145)
[2024-11-12 05:23] LABS: Platelet Adequacy Comment Platelets Decreased; RBC Morphology Within Normal Limits
[2024-11-12] MEDS: Melatonin 3 MG TAB PO PRN (21:07)
[2024-11-13 05:33] LABS: Anion Gap 9 mmol/L (10-20); BUN (Urea Nitrogen) 50 mg/dL (9.8-20.1); Calc. Creatinine Clearance 21 mL/min (70-130); Calcium 8.7 mg/dL (7.8-10.44); Carbon Dioxide 29 mmol/L (23-31); Chloride 103 mmol/L (98-107); Glucose 314 mg/dL (83-110); Potassium 4.5 mmol/L (3.5-5.1); Sodium 136 mmol/L (136-145)
[2024-11-14 05:15] LABS: Anion Gap 11 mmol/L (10-20); BUN (Urea Nitrogen) 42 mg/dL (9.8-20.1); Calc. Creatinine Clearance 26 mL/min (70-130); Calcium 8.7 mg/dL (7.8-10.44); Carbon Dioxide 25 mmol/L (23-31); Chloride 104 mmol/L (98-107); Glucose 263 mg/dL (83-110); Potassium 4.3 mmol/L (3.5-5.1); Sodium 136 mmol/L (136-145)
[2024-11-14] MEDS: Acetaminophen 325 MG TAB PO SCH (12:41)
[2024-11-14 15:34] VITALS: BP 126/58; TEMP 98.3
== END 2024-11-14 17:15 | DRG 683 ==
LOC: SURG A 12:13 → 2NO 12:14
PROVIDERS: ADMIT Internal Medicine; ATTEND Internal Medicine
DX: N17.9 Acute kidney failure, unspecified (principal); E87.1 Hypo-osmolality and hyponatremia; I13.0 Hypertensive heart and chronic kidney disease with heart failure and stage 1 through stage 4 chronic kidney disease, or unspecified chronic kidney disease; I38 Endocarditis, valve unspecified; I48.19 Other persistent atrial fibrillation; E87.21 Acute metabolic acidosis; K86.1 Other chronic pancreatitis; R07.9 Chest pain, unspecified; I48.91 Unspecified atrial fibrillation; K74.60 Unspecified cirrhosis of liver; E03.9 Hypothyroidism, unspecified; N18.30 Chronic kidney disease, stage 3 unspecified; E11.22 Type 2 diabetes mellitus with diabetic chronic kidney disease; I25.10 Atherosclerotic heart disease of native coronary artery without angina pectoris; E86.0 Dehydration; E11.65 Type 2 diabetes mellitus with hyperglycemia; D63.1 Anemia in chronic kidney disease; E87.6 Hypokalemia; E55.9 Vitamin D deficiency, unspecified; Z82.49 Family history of ischemic heart disease and other diseases of the circulatory system; Z79.01 Long term (current) use of anticoagulants; Z88.2 Allergy status to sulfonamides; Z88.8 Allergy status to other drugs, medicaments and biological substances; Z85.3 Personal history of malignant neoplasm of breast
CPT/HCPCS: 36415; 36416; 80048; 80053; 80069; 82010; 82306; 82570; 82728; 83540; 83550; 83970; 84100; 84300; 85025; 87040; 97139; J0878; J1644; J1815; J7030; J7042; J7999; Q5105

== ENCOUNTER 2024-11-22 13:29 | Emergency (ER) | payer MEDICARE ==
[2024-11-22 14:22] LABS: #Basophils 0.04 10x3/uL (0.0-0.2); #Eosinophils 0.27 10x3/uL (0.0-0.7); #Monocytes 0.45 10x3/uL (0.11-0.59); #Neutrophils 3.96 10x3/uL (1.40-6.50); %Basophils 0.7 % (0.0-1.0); %Eosinophils 4.9 % (0.0-10.0); %Lymphocytes 14.0 % (21.0-51.0); %Monocytes 8.2 % (0.0-10.0); %Neutrophils 72.0 % (42.0-75.0); Hematocrit 32.7 % (36.0-47.0); Hemoglobin 10.0 g/dL (12.0-16.0); Mean Corpuscular Hemoglobin 27.9 pg (27.0-31.0); Mean Corpuscular Volume 91.3 fL (78.0-98.0); Platelet Count 123 10x3/uL (130-400); Red Blood Cell (RBC) Count 3.58 mill/uL (4.20-5.40); White Blood Cell (WBC) Count 5.50 10x3/uL (4.8-10.8)
[2024-11-22 14:46] LABS: INR-International Normal Ratio 1.0; PTT 29.9 sec (22.9-36.1); Prothrombin Time 13.7 sec (12.0-14.7)
[2024-11-22 14:51] LABS: Anisocytosis MODERATE=16-30 cells HPF (0-5); Macrocytosis MODERATE=16-30 cells HPF (0-5); Platelet Adequacy Comment Platelets Decreased; Polychromasia SLIGHT = 2-3 cells HPF (0-2)
[2024-11-22 14:52] LABS: ALT (SGPT) 41 U/L (Less than 34); AST (SGOT) 81 U/L (11-34); Albumin 2.6 g/dL (3.1-4.5); Alkaline Phosphatase 252 U/L (40-110); Anion Gap 16 mmol/L (10-20); BUN (Urea Nitrogen) 26 mg/dL (9.8-20.1); Bilirubin, Total 0.6 mg/dL (0.3-1.2); Calc. Creatinine Clearance 0 mL/min (70-130); Calcium 8.3 mg/dL (7.8-10.44); Carbon Dioxide 22 mmol/L (23-31); Chloride 97 mmol/L (98-107); Globulin 5.2 g/dL (2.4-3.5); Glucose 445 mg/dL (83-110); Potassium 4.8 mmol/L (3.5-5.1); Sodium 130 mmol/L (136-145)
== END 2024-11-22 17:40 ==
LOC: ERS 13:29
DX: E11.65 Type 2 diabetes mellitus with hyperglycemia (principal); D64.9 Anemia, unspecified; I11.0 Hypertensive heart disease with heart failure; I50.9 Heart failure, unspecified
CPT/HCPCS: 80053; 82962; 85025; 85610; 85730; 86850; 86900; 86901; 86920; 96374; 99284; J1815; 36416

== ENCOUNTER 2025-01-06 15:31 | Inpatient (IN) | payer MEDICARE ==
[2025-01-06 17:33] LABS: CAUTI Indications for Culture Alt mental st,lethar; Glucose, Urine (Dipstick) Normal (Negative); Leukocyte 500 Leu/uL (Negative); Protein, Urine (Dipstick) 30 mg/dL (Neg-Trace); Specific Gravity, Urine 1.013 (1.002-1.036); WBC/HPF Greater than 50 HPF (0-3)
[2025-01-06 17:36] LABS: ALT (SGPT) 33 U/L (Less than 34); AST (SGOT) 58 U/L (11-34); Albumin 1.6 g/dL (3.1-4.5); Alkaline Phosphatase 208 U/L (40-110); Anion Gap 10 mmol/L (10-20); BUN (Urea Nitrogen) 22 mg/dL (9.8-20.1); Bilirubin, Total 0.5 mg/dL (0.3-1.2); Calc. Creatinine Clearance 0 mL/min (70-130); Calcium 7.9 mg/dL (7.8-10.44); Carbon Dioxide 23 mmol/L (23-31); Chloride 111 mmol/L (98-107); Globulin 4.4 g/dL (2.4-3.5); Glucose 80 mg/dL (83-110); Magnesium 1.4 mg/dL (1.6-2.6); Potassium 5.0 mmol/L (3.5-5.1); Sodium 139 mmol/L (136-145)
[2025-01-06 17:43] LABS: Bacteria/HPF 4+ HPF (None Seen)
[2025-01-06 17:44] LABS: Urine Culture Reflex Yes Yes
[2025-01-06 17:48] LABS: #Basophils 0.03 10x3/uL (0.0-0.2); #Eosinophils 0.21 10x3/uL (0.0-0.7); #Monocytes 0.41 10x3/uL (0.11-0.59); #Neutrophils 3.62 10x3/uL (1.40-6.50); %Basophils 0.6 % (0.0-1.0); %Eosinophils 4.2 % (0.0-10.0); %Lymphocytes 14.4 % (21.0-51.0); %Monocytes 8.2 % (0.0-10.0); %Neutrophils 72.4 % (42.0-75.0); Hematocrit 44.0 % (36.0-47.0); Hemoglobin 14.2 g/dL (12.0-16.0); Mean Corpuscular Hemoglobin 28.6 pg (27.0-31.0); Mean Corpuscular Volume 88.5 fL (78.0-98.0); Platelet Count 95 10x3/uL (130-400); Red Blood Cell (RBC) Count 4.97 mill/uL (4.20-5.40); White Blood Cell (WBC) Count 5.00 10x3/uL (4.8-10.8)
[2025-01-06 17:54] LABS: Anisocytosis SLIGHT = 6-15 cells HPF (0-5); Burr Cells SLIGHT = 2-5 cells HPF (0-1); Macrocytosis SLIGHT = 6-15 cells HPF (0-5); Platelet Adequacy Comment Platelets Decreased; Polychromasia SLIGHT = 2-3 cells HPF (0-2)
[2025-01-06] MEDS ORDERED: Glucagon 1 MG/ML KIT IM PRN (20:12)
[2025-01-06] MEDS ORDERED: Dextrose 50% Abboject 50 ML SYRINGE SLOW IVP PRN (20:12)
[2025-01-06] MEDS: Insulin Glargine 30 UNITS/0.3 ML VIAL SC SCH (21:37)
[2025-01-06] MEDS: Lactulose 20 GM (30 mL) UDCUP PO SCH (21:37)
[2025-01-06] MEDS: cefTRIAXone\\ROCEPHIN 1 GM in Sodium Chloride 0.9% 100 ML IVPB SCH (21:38)
[2025-01-06 22:33] VITALS: BMI 29.1
[2025-01-07] MEDS: Lactulose 10 GM/15 ML Oral Solution PR SCH ×2 (04:54→09:00)
[2025-01-07] MEDS ORDERED: Non-Formulary Item 1 EACH (Levothyroxine Sodium [Levothyroxine Sodium] 137 MCG Tablet) PO SCH (06:00)
[2025-01-07 06:07] LABS: Anion Gap 11 mmol/L (10-20); BUN (Urea Nitrogen) 25 mg/dL (9.8-20.1); Calc. Creatinine Clearance 44 mL/min (70-130); Calcium 8.0 mg/dL (7.8-10.44); Carbon Dioxide 22 mmol/L (23-31); Chloride 112 mmol/L (98-107); Glucose 103 mg/dL (83-110); Potassium 4.8 mmol/L (3.5-5.1); Sodium 140 mmol/L (136-145)
[2025-01-07 06:19] LABS: #Basophils 0.06 10x3/uL (0.0-0.2); #Eosinophils 0.31 10x3/uL (0.0-0.7); #Monocytes 0.66 10x3/uL (0.11-0.59); #Neutrophils 5.22 10x3/uL (1.40-6.50); %Basophils 0.8 % (0.0-1.0); %Eosinophils 4.3 % (0.0-10.0); %Lymphocytes 13.2 % (21.0-51.0); %Monocytes 9.2 % (0.0-10.0); %Neutrophils 72.4 % (42.0-75.0); Hematocrit 28.5 % (36.0-47.0); Hemoglobin 9.0 g/dL (12.0-16.0); Mean Corpuscular Hemoglobin 28.7 pg (27.0-31.0); Mean Corpuscular Volume 90.8 fL (78.0-98.0); Platelet Count 131 10x3/uL (130-400); Red Blood Cell (RBC) Count 3.14 mill/uL (4.20-5.40); White Blood Cell (WBC) Count 7.21 10x3/uL (4.8-10.8)
[2025-01-07] MEDS: Pantoprazole 40 MG DR.TAB PO SCH (09:00)
[2025-01-07] MEDS: Cholecalciferol 1,000 UNITS (25 MCG) TAB PO SCH (09:00)
[2025-01-07] MEDS: Magnesium Sulfate In Water 4 GM in Premix 1 BAG IVPB SCH (11:10)
[2025-01-07] MEDS: Enoxaparin 40 MG (0.4 mL) SYRINGE SC SCH (11:10)
[2025-01-07] MEDS: Rifaximin 550 MG TAB PO SCH (20:25)
[2025-01-08 05:21] LABS: #Basophils 0.04 10x3/uL (0.0-0.2); #Eosinophils 0.14 10x3/uL (0.0-0.7); #Monocytes 0.77 10x3/uL (0.11-0.59); #Neutrophils 5.30 10x3/uL (1.40-6.50); %Basophils 0.6 % (0.0-1.0); %Eosinophils 2.0 % (0.0-10.0); %Lymphocytes 10.0 % (21.0-51.0); %Monocytes 11.0 % (0.0-10.0); %Neutrophils 76.0 % (42.0-75.0); Hematocrit 27.8 % (36.0-47.0); Hemoglobin 8.7 g/dL (12.0-16.0); Mean Corpuscular Hemoglobin 28.6 pg (27.0-31.0); Mean Corpuscular Volume 91.4 fL (78.0-98.0); Platelet Count 136 10x3/uL (130-400); Red Blood Cell (RBC) Count 3.04 mill/uL (4.20-5.40); White Blood Cell (WBC) Count 6.98 10x3/uL (4.8-10.8)
[2025-01-08 05:28] LABS: INR-International Normal Ratio 1.3; PTT 41.6 sec (22.9-36.1); Prothrombin Time 16.2 sec (12.0-14.7)
[2025-01-08 05:32] LABS: ALT (SGPT) 31 U/L (Less than 34); AST (SGOT) 51 U/L (11-34); Albumin 1.5 g/dL (3.1-4.5); Alkaline Phosphatase 202 U/L (40-110); Anion Gap 16 mmol/L (10-20); BUN (Urea Nitrogen) 28 mg/dL (9.8-20.1); Bilirubin, Total 0.5 mg/dL (0.3-1.2); Calc. Creatinine Clearance 44 mL/min (70-130); Calcium 8.2 mg/dL (7.8-10.44); Carbon Dioxide 19 mmol/L (23-31); Chloride 111 mmol/L (98-107); Globulin 4.2 g/dL (2.4-3.5); Glucose 217 mg/dL (83-110); Magnesium 2.2 mg/dL (1.6-2.6); Potassium 4.6 mmol/L (3.5-5.1); Sodium 141 mmol/L (136-145)
[2025-01-08] MEDS: Lactulose 20 GM (30 mL) UDCUP PO SCH (08:26)
[2025-01-08 10:25] VITALS: BMI 29.1
[2025-01-08] MEDS: Albumin 25% 25 GM (100 mL) BOT IVPB SCH (18:27)
[2025-01-08] MEDS: Furosemide 40 MG (4 mL) VIAL SLOW IVP SCH (20:55)
[2025-01-09 08:08] LABS: Anion Gap 13 mmol/L (10-20); BUN (Urea Nitrogen) 28 mg/dL (9.8-20.1); Calc. Creatinine Clearance 41 mL/min (70-130); Calcium 8.2 mg/dL (7.8-10.44); Carbon Dioxide 20 mmol/L (23-31); Chloride 107 mmol/L (98-107); Glucose 229 mg/dL (83-110); Potassium 3.8 mmol/L (3.5-5.1); Sodium 136 mmol/L (136-145)
[2025-01-09 08:11] LABS: Hematocrit 21.3 % (36.0-47.0); Hemoglobin 6.5 g/dL (12.0-16.0); Mean Corpuscular Hemoglobin 28.4 pg (27.0-31.0); Mean Corpuscular Volume 93.0 fL (78.0-98.0); Platelet Count 90 10x3/uL (130-400); Red Blood Cell (RBC) Count 2.29 mill/uL (4.20-5.40); White Blood Cell (WBC) Count 4.03 10x3/uL (4.8-10.8)
[2025-01-09 11:09] LABS: #Basophils Less than 0.03 10x3/uL (0.0-0.2); #Eosinophils 0.17 10x3/uL (0.0-0.7); #Monocytes 0.56 10x3/uL (0.11-0.59); #Neutrophils 2.76 10x3/uL (1.40-6.50); %Basophils 0.5 % (0.0-1.0); %Eosinophils 4.3 % (0.0-10.0); %Lymphocytes 10.7 % (21.0-51.0); %Monocytes 14.2 % (0.0-10.0); %Neutrophils 70.0 % (42.0-75.0); Hematocrit 22.6 % (36.0-47.0); Hemoglobin 6.9 g/dL (12.0-16.0); Mean Corpuscular Hemoglobin 28.3 pg (27.0-31.0); Mean Corpuscular Volume 92.6 fL (78.0-98.0); Platelet Count 78 10x3/uL (130-400); Red Blood Cell (RBC) Count 2.44 mill/uL (4.20-5.40); White Blood Cell (WBC) Count 3.94 10x3/uL (4.8-10.8)
[2025-01-09 11:46] LABS: Anisocytosis SLIGHT = 6-15 cells HPF (0-5); Burr Cells SLIGHT = 2-5 cells HPF (0-1); Macrocytosis SLIGHT = 6-15 cells HPF (0-5); Platelet Adequacy Comment Platelets Decreased; Polychromasia SLIGHT = 2-3 cells HPF (0-2); Target Cells SLIGHT = 2-5 cells HPF (0-1)
[2025-01-09] MEDS: Albumin 25% 25 GM (100 mL) BOT IVPB SCH (18:33)
[2025-01-09] MEDS: Insulin Glargine 30 UNITS/0.3 ML VIAL SC SCH (20:58)
[2025-01-10 06:30] LABS: #Basophils Less than 0.03 10x3/uL (0.0-0.2); #Eosinophils 0.17 10x3/uL (0.0-0.7); #Monocytes 0.43 10x3/uL (0.11-0.59); #Neutrophils 3.31 10x3/uL (1.40-6.50); %Basophils 0.5 % (0.0-1.0); %Eosinophils 3.9 % (0.0-10.0); %Lymphocytes 9.4 % (21.0-51.0); %Monocytes 9.9 % (0.0-10.0); %Neutrophils 75.8 % (42.0-75.0); Hematocrit 21.5 % (36.0-47.0); Hemoglobin 6.6 g/dL (12.0-16.0); Mean Corpuscular Hemoglobin 28.7 pg (27.0-31.0); Mean Corpuscular Volume 93.5 fL (78.0-98.0); Platelet Count 72 10x3/uL (130-400); Red Blood Cell (RBC) Count 2.30 mill/uL (4.20-5.40); White Blood Cell (WBC) Count 4.36 10x3/uL (4.8-10.8)
[2025-01-10 06:46] LABS: Anion Gap 12 mmol/L (10-20); BUN (Urea Nitrogen) 30 mg/dL (9.8-20.1); Calc. Creatinine Clearance 41 mL/min (70-130); Calcium 8.3 mg/dL (7.8-10.44); Carbon Dioxide 23 mmol/L (23-31); Chloride 104 mmol/L (98-107); Glucose 191 mg/dL (83-110); Potassium 4.0 mmol/L (3.5-5.1); Sodium 135 mmol/L (136-145)
[2025-01-10 18:18] LABS: Hemoglobin 8.3 g/dL (12.0-16.0)
[2025-01-11 05:38] LABS: Anion Gap 13 mmol/L (10-20); BUN (Urea Nitrogen) 30 mg/dL (9.8-20.1); Calc. Creatinine Clearance 46 mL/min (70-130); Calcium 8.2 mg/dL (7.8-10.44); Carbon Dioxide 21 mmol/L (23-31); Chloride 102 mmol/L (98-107); Glucose 161 mg/dL (83-110); Potassium 4.0 mmol/L (3.5-5.1); Sodium 132 mmol/L (136-145)
[2025-01-11 06:29] LABS: #Basophils Less than 0.03 10x3/uL (0.0-0.2); #Eosinophils 0.17 10x3/uL (0.0-0.7); #Monocytes 0.39 10x3/uL (0.11-0.59); #Neutrophils 3.47 10x3/uL (1.40-6.50); %Basophils 0.5 % (0.0-1.0); %Eosinophils 3.9 % (0.0-10.0); %Lymphocytes 7.3 % (21.0-51.0); %Monocytes 8.9 % (0.0-10.0); %Neutrophils 78.9 % (42.0-75.0); Hematocrit 25.1 % (36.0-47.0); Hemoglobin 7.8 g/dL (12.0-16.0); Mean Corpuscular Hemoglobin 28.8 pg (27.0-31.0); Mean Corpuscular Volume 92.6 fL (78.0-98.0); Platelet Count 64 10x3/uL (130-400); Red Blood Cell (RBC) Count 2.71 mill/uL (4.20-5.40); White Blood Cell (WBC) Count 4.39 10x3/uL (4.8-10.8)
[2025-01-11 12:21] LABS: Hemoglobin 8.3 g/dL (12.0-16.0)
[2025-01-11] MEDS: Lactulose 20 GM (30 mL) UDCUP PO SCH (17:11)
[2025-01-12 00:16] VITALS: TEMP 98.2
[2025-01-12 03:43] LABS: Hematocrit 27.6 % (36.0-47.0); Hemoglobin 8.7 g/dL (12.0-16.0); Mean Corpuscular Hemoglobin 29.1 pg (27.0-31.0); Mean Corpuscular Volume 92.3 fL (78.0-98.0); Platelet Count 80 10x3/uL (130-400); Red Blood Cell (RBC) Count 2.99 mill/uL (4.20-5.40); White Blood Cell (WBC) Count 4.78 10x3/uL (4.8-10.8)
[2025-01-12 03:52] LABS: Anion Gap 12 mmol/L (10-20); BUN (Urea Nitrogen) 31 mg/dL (9.8-20.1); Calc. Creatinine Clearance 46 mL/min (70-130); Calcium 8.4 mg/dL (7.8-10.44); Carbon Dioxide 26 mmol/L (23-31); Chloride 102 mmol/L (98-107); Glucose 111 mg/dL (83-110); Magnesium 1.5 mg/dL (1.6-2.6); Potassium 4.2 mmol/L (3.5-5.1); Sodium 136 mmol/L (136-145)
[2025-01-12] MEDS: Magnesium 2 GM/50 ML(in water) 2 GM in Premix 1 BAG IVPB SCH (06:11)
[2025-01-12] MEDS: Lactulose 20 GM (30 mL) UDCUP PO SCH (09:40)
[2025-01-12] MEDS: Spironolactone 25 MG TAB PO SCH (09:41)
[2025-01-12 09:43] VITALS: BP 123/82
== END 2025-01-12 13:27 | DRG 442 ==
LOC: ERS 15:31 → T4-B 18:30
PROVIDERS: ADMIT Internal Medicine; ATTEND Internal Medicine
PROC: 3E03329 Introduction of Other Anti-infective into Peripheral Vein, Percutaneous Approach (ICD-10-PCS; principal; 2025-01-06)
PROC: 0T9B70Z Drainage of Bladder with Drainage Device, Via Natural or Artificial Opening (ICD-10-PCS; 2025-01-07)
PROC: 30233J1 Transfusion of Nonautologous Serum Albumin into Peripheral Vein, Percutaneous Approach (ICD-10-PCS; 2025-01-08)
PROC: 30233N1 Transfusion of Nonautologous Red Blood Cells into Peripheral Vein, Percutaneous Approach (ICD-10-PCS; 2025-01-10)
DX: K76.82 Hepatic encephalopathy (principal); E87.1 Hypo-osmolality and hyponatremia; I13.0 Hypertensive heart and chronic kidney disease with heart failure and stage 1 through stage 4 chronic kidney disease, or unspecified chronic kidney disease; I50.32 Chronic diastolic (congestive) heart failure; K76.6 Portal hypertension; K74.60 Unspecified cirrhosis of liver; Z66 Do not resuscitate; I35.8 Other nonrheumatic aortic valve disorders; I48.91 Unspecified atrial fibrillation; K75.81 Nonalcoholic steatohepatitis (NASH); D63.1 Anemia in chronic kidney disease; E83.42 Hypomagnesemia; R19.7 Diarrhea, unspecified; R82.71 Bacteriuria; L89.151 Pressure ulcer of sacral region, stage 1; L89.892 Pressure ulcer of other site, stage 2; E11.22 Type 2 diabetes mellitus with diabetic chronic kidney disease; L89.622 Pressure ulcer of left heel, stage 2; L89.612 Pressure ulcer of right heel, stage 2; N18.9 Chronic kidney disease, unspecified; E11.65 Type 2 diabetes mellitus with hyperglycemia; Z88.2 Allergy status to sulfonamides; Z88.5 Allergy status to narcotic agent; Z82.49 Family history of ischemic heart disease and other diseases of the circulatory system; Z79.899 Other long term (current) drug therapy; E03.9 Hypothyroidism, unspecified; Z79.4 Long term (current) use of insulin; E88.09 Other disorders of plasma-protein metabolism, not elsewhere classified; R13.10 Dysphagia, unspecified; Z79.890 Hormone replacement therapy
CPT/HCPCS: 36415; 36416; 36430; 70450; 71045; 80048; 80053; 81001; 82140; 83735; 83880; 84443; 85025; 85027; 85610; 85730; 86850; 86900; 86901; 87077; 87086; 87186; 87324; 87449; 94760; 97139; J0696; J1650; J1815; J1940; J2185; J3475; J7042; P9016; P9047